=== PATIENT | female | born 1945 | race Caucasian/White ===

== ENCOUNTER 2016-11-25 11:22 | Inpatient (IN) | payer MEDICARE ==
[2016-11-25] VITALS (9 sets, daily range): BP systolic 91–145; BP diastolic 58–86; PULSE 65–104; RESP 18; TEMP 97.9; O2SAT 95–98
[~2016-11-25] VITALS: Ht 162.6 cm; Wt 107.3 kg
[~2016-11-25 11:22] MED LIST: B-1210005 PO; CHOL1CAP2; COUM2.5T PO; COUM2TAB PO; D31000CA PO; ENAL20TA PO; ENOX60P SQ; GLIM4TAB PO; LEVO125T3 PO; METF1000 PO; SIMV40TA PO; TRAD5TAB PO
[2016-11-25] MEDS ORDERED: TRIL135C PO (11:55)
[2016-11-25] MEDS ORDERED: METF1000 PO (11:55)
[2016-11-25] MEDS ORDERED: ZOCO40TA PO (11:55)
[2016-11-25] MEDS ORDERED: LEVO-168 PO (11:55)
[2016-11-25] MEDS ORDERED: CHOL1TAB5 PO (11:55)
[2016-11-25] MEDS ORDERED: ENAL20TA PO (11:55)
[2016-11-25] MEDS ORDERED: SODIUM CHLORIDE 0.9% FLUSH 5 ML FLUSH IVF PRN ×2 (12:00→14:15)
--- NOTE | 2016-11-25 12:00 | PD ---
HPI Chief Complaint: Respiratory Symptoms Time Seen by Provider: 11:51 Travel History International Travel<30 days: No Contact w/Intl Traveler<30days: No Traveled to known affect area: No History of Present Illness HPI 71-year-old female with history of COPD, previous PE no longer anticoagulated here with complaint of shortness of breath. Approximately 5 days ago patient developed a small sore throat. This is bilateral, and improved with Sucrets. For the last 2 days she has been mostly symptom-free with regards to her sore throat. Yesterday afternoon while at a [employer] game patient developed shortness of breath. This is mostly exertional, though some at rest. No chest pain. She has a dry nonproductive cough. States that her COPD really does not give her much issues. Patient is concerned because she just stopped her anticoagulation, Coumadin, 2 months ago based on her PCPs recommendation after having a PE approximately 3 years ago. Patient states that the dyspnea on exertion is identical to when she had a PE previously and is concerned for same. She denies any history of cardiac disease. PFSH Past Medical History Cancer: No Cardiovascular Problems: No High Cholesterol: Yes Diabetes: Yes (type 2 ) Patient Takes Glucophage: Yes Diminished Hearing: No Endocrine: Yes Genitourinary: No Hepatitis: No Hiatal Hernia: No Hypertension: Yes Immune Disorder: No Musculoskeletal: No Neurologic: No Psychiatric: No Reproductive: No Respiratory: Yes (copd; hx pe) Thyroid Disease: Yes Influenza Vaccination: Yes ?: Not : 4 Para: 4 Past Surgical History Surgical History: No Previous Surgery AICD: No Joint Replacement: No Pacemaker: No Social History Alcohol Use: No Tobacco Use: No Substance Use: No Allergies-Medications (Allergen,Severity, Reaction): Coded Allergies: Penicillin (Unverified Allergy, Severe, HIVES, 11/25/16) Sulfa (Unverified Allergy, Severe, ANXIETY, 11/25/16) Reported Meds & Prescriptions Reported Meds & Active Scripts Active Reported Tanzeum 4-Pack Inj (Albiglutide) 50 Mg Pfpen 50 Mg SQ Q7D Lisinopril 20 Mg Tab 20 Mg PO BID Tradjenta (Linagliptin) 5 Mg Tab 5 Mg PO DAILY Glimepiride 4 Mg Tab 4 Mg PO BIDAC D 5000 (Cholecalciferol) 5,000 Unit Tab 1 Tab PO DAILY Trilipix (Choline Fenofibrate DR) 135 Mg Capdr 135 Mg PO DAILY Zocor (Simvastatin) 40 Mg Tab 40 Mg PO HS Levothyroxine (Levothyroxine Sodium) 112 Mcg Tab 112 Mcg PO DAILY Metformin (Metformin HCl) 1,000 Mg Tab 1,000 Mg PO BIDPC With meals Review of Systems Except as stated in HPI: all other systems reviewed are Neg Physical Exam Narrative GENERAL:Obese elderly female in no acute distress SKIN: Warm and dry. HEAD: Normocephalic. EYES: No scleral icterus. No injection or drainage. ENT: Mucous membranes pink and moist. NECK: Supple CARDIOVASCULAR: Regular rate and rhythm. No murmur appreciated. RESPIRATORY: No accessory muscle use. Clear to auscultation. Breath sounds equal bilaterally. GASTROINTESTINAL: Abdomen soft, non-tender, nondistended. Obese MUSCULOSKELETAL: Trace BLE edema. NEUROLOGICAL: Awake and alert. Motor grossly within normal limits. Normal speech. PSYCHIATRIC: Appropriate mood and affect; insight and judgment normal. Data Data Last Documented VS Vital Signs Date Time Temp Pulse Resp B/P Pulse Ox O2 Delivery O2 Flow Rate FiO2 11/25/16 13:07 80 18 139/66 95 Room Air 11/25/16 11:42 97.9 Orders Complete Blood Count With Diff (11/25/16 11:55) Basic Metabolic Panel (Bmp) (11/25/16 11:55) Act Partial Throm Time (Ptt) (11/25/16 11:55) Prothrombin Time / Inr (Pt) (11/25/16 11:55) Troponin I (11/25/16 11:55) Iv Access Insert/Monitor (11/25/16 11:55) Electrocardiogram (11/25/16 11:55) Ecg Monitoring (11/25/16 11:55) Oximetry (11/25/16 11:55) Ct Pulmonary Angiogram (11/25/16 11:55) Sodium Chloride 0.9% Flush (Ns Flush) (11/25/16 12:00) Iodixanol 320 Inj (Rad Ct) (Visipaque 32 (11/25/16 13:07) [facility] Nursing Information (11/25/16 13:30) Heparin Infusion JONATHON.Q1H (11/25/16 13:22) Heparin Inj (Heparin Inj) (11/25/16 13:30) Heparin Inj (Heparin Inj) (11/25/16 19:30) Heparin Inj (Heparin Inj) (11/25/16 19:30) Heparin-D5w Inj (Heparin-D5w Inj) (11/25/16 13:30) Cbc No Diff, Includes Plts (11/28/16 06:00) Act Partial Throm Time (Ptt) (11/25/16 20:22) Occult Blood (Hemoccult) Stool (11/25/16 13:22) Activity Bed Rest (11/25/16 13:24) ^ Anticoagulant Alert (11/25/16 13:24) ^ Post Infusion Restrictions (11/25/16 13:24) Vital Signs (Adult) .As directed (11/25/16 13:24) ^ Notify Dr: Blood Pressure (11/25/16 13:24) ^ Medication Alert (11/25/16 13:24) Misc Nursing Information (11/25/16 13:30) Alteplase Inj (Activase Inj) (11/25/16 13:30) Echo 2d Comp W/Dopp(Routine) (11/25/16 ) Admit Order (Ed Use Only) (11/25/16 13:39) Labs Laboratory Tests Test 11/25/16 12:00 White Blood Count 8.1 TH/MM3 Red Blood Count 4.29 MIL/MM3 Hemoglobin 12.7 GM/DL Hematocrit 37.8 % Mean Corpuscular Volume 88.2 FL Mean Corpuscular Hemoglobin 29.7 PG Mean Corpuscular Hemoglobin 33.6 % Concent Red Cell Distribution Width 12.5 % Platelet Count 173 TH/MM3 Mean Platelet Volume 8.2 FL Neutrophils (%) (Auto) 81.1 % Lymphocytes (%) (Auto) 13.3 % Monocytes (%) (Auto) 4.8 % Eosinophils (%) (Auto) 0.5 % Basophils (%) (Auto) 0.3 % Neutrophils # (Auto) 6.6 TH/MM3 Lymphocytes # (Auto) 1.1 TH/MM3 Monocytes # (Auto) 0.4 TH/MM3 Eosinophils # (Auto) 0.0 TH/MM3 Basophils # (Auto) 0.0 TH/MM3 CBC Comment DIFF FINAL Differential Comment Prothrombin Time 12.3 SEC Prothromb Time International 1.1 RATIO Ratio Activated Partial 24.8 SEC Thromboplast Time Sodium Level 142 MEQ/L Potassium Level 4.1 MEQ/L Chloride Level 107 MEQ/L Carbon Dioxide Level 22.8 MEQ/L Anion Gap 12 MEQ/L Blood Urea Nitrogen 28 MG/DL Creatinine 1.50 MG/DL Estimat Glomerular Filtration 34 ML/MIN Rate Random Glucose 301 MG/DL Calcium Level 8.2 MG/DL Troponin I 0.59 NG/ML MDM Medical Decision Making Medical Screen Exam Complete: Yes Emergency Medical Condition: Yes Medical Record Reviewed: Yes Differential Diagnosis 71-year-old female with history of COPD, previous PE no longer anticoagulated here with sore throat now resolved and dyspnea on exertion for the last day, nonproductive cough. Differential includes COPD exacerbation, bronchitis, pneumonia, PE, symptomatic anemia, arrhythmia, ACS, viral syndrome. Narrative Course Patient placed on monitor, IV established and blood obtained. Twelve-lead EKG showed sinus rhythm with left axis deviation. Patient has Q waves in inferior leads 3, aVF and T waves throughout all precordial leads V1 through V6. Thankfully, this is similar to patient's previous EKG appearance. CBC, BMP, troponin, coags obtained and notable for troponin 0.59. BUN 28, creatinine 1.50. CT pulmonary angiogram showed extensive lateral pulmonary emboli with prominent saddle embolus. No acute pulmonary infiltrates. Given the extensiveness of her clot burden, associated cardiac strain I discussed thrombolysis with patient, cardiology Dr. Linares, key account manager Dr. Gordon. And all parties agree patient would benefit from thrombolysis given her clot burden, likelihood of pulmonary hypertension. Risks and benefits were discussed with patient and her significant other. Patient was given Activase followed by heparin. Stat echo was ordered to evaluate for cardiac dysfunction, RV strain. At approximately 1455 while awaiting EMS transport to our [facility], ICU patient stated she felt poorly, lightheaded and nauseous. Evaluated by myself and nursing with a drop in blood pressure to the 60s systolic. Blood sugar was checked and normal. Given 1 L normal saline bolus, 4 mg Zofran with improvement of symptoms. This happened during patient's TPA infusion. No evidence of bleeding, abdominal pain, etc. EMS arrived at approximately [address]5 [address] patient [address] [facility]. Critical Care Narrative Aggregate critical care time was 85 minutes. Time to perform other separately billable procedures was not included in the critical care time. My time did not include minutes spent treating any other patients simultaneously or on activities that did not directly contribute to the patient's treatment. The services I provided to this patient were to treat and/or prevent clinically significant deterioration that could result in: Cardiopulmonary decompensation, hemorrhage, , disability I provided critical care services requiring my management, as noted below: Chart data review, documentation time, medication orders and management, vital sign assessments/reviewing monitor data, ordering and reviewing lab tests, ordering and interpreting/reviewing x-rays and diagnostic studies, care of the patient and discussion of the patient with the admitting physicians. Diagnosis Primary Impression: Pulmonary embolism Qualified Code: I26.02 - Acute saddle pulmonary embolism with acute cor pulmonale Additional Impressions: Hypercoagulable state Demand ischemia Elevated troponin Dyspnea on exertion Renal insufficiency Admitting Information Admitting Physician Requests: Admit Jannet Philip MD Nov 25, 2016 12:00
[2016-11-25 12:10] LABS: AUTOMATED NEUTROPHIL # 6.6 TH/MM3 (1.8-7.7); BASOPHIL % 0.3 % (0.0-2.0); EOSINOPHIL % 0.5 % (0.0-4.0); HEMATOCRIT 37.8 % (35.0-46.0); HEMO FLAGS DIFF FINAL; LYMPH % 13.3 % (9.0-44.0); LYMPHOCYTE # 1.1 TH/MM3 (1.0-4.8); MEAN CELL VOLUME 88.2 FL (80.0-100.0); MEAN CORPUSCULAR HEMOGLOBIN 29.7 PG (27.0-34.0); MEAN CORPUSCULAR HGB CONC 33.6 % (32.0-36.0); MONO % 4.8 % (0.0-8.0); NEUT % 81.1 % (16.0-70.0); PLATELET COUNT 173 TH/MM3 (150-450); RED BLOOD COUNT 4.29 MIL/MM3 (4.00-5.30); RED CELL DISTRIBUTION WIDTH 12.5 % (11.6-17.2); WHITE BLOOD COUNT 8.1 TH/MM3 (4.0-11.0)
[2016-11-25] MEDS ORDERED: TRAD5TAB PO (12:16)
[2016-11-25] MEDS ORDERED: GLIM4TAB PO (12:16)
[2016-11-25] MEDS ORDERED: LISI-515 PO (12:18)
[2016-11-25 12:23] LABS: POTASSIUM 4.1 MEQ/L (3.5-5.1)
[2016-11-25 12:26] LABS: BICARBONATE 22.8 MEQ/L (21.0-32.0)
[2016-11-25 12:28] LABS: APTT (PATIENT) 24.8 SEC (24.3-30.1); INTERNATIONAL NORMALIZED RATIO 1.1 RATIO; PROTHROMBIN TIME - PATIENT 12.3 SEC (9.8-11.6)
[2016-11-25] MEDS ORDERED: IODIXANOL 320 MG/ML 10 ML VIAL (for Rad CT) IV ONE (13:07)
--- NOTE | 2016-11-25 13:20 | RADHPO ---
EXAM DATE/TIME: 11/25/2016 12:51 [place] COMPARISON: CT PULMONARY ANGIOGRAM, May 11, 2014, 14:49. INDICATIONS : Shortness of breath for two days. IV CONTRAST: 50 cc Visipaque (iodixanol) IV RADIATION DOSE: 20.50 CTDIvol (mGy) MEDICAL HISTORY : Chronic obstructive pulmonary disease. Hypertension. Diabetes mellitus type 2.pulmonary embolism SURGICAL HISTORY : None. ENCOUNTER: Initial ACUITY: 2 days PAIN SCALE: 0/10 LOCATION: Bilateral chest TECHNIQUE: Volumetric scanning of the chest was performed using a pulmonary embolism protocol MIP images were re constructed. Using automated exposure control and adjustment of the mA and/or kV according to patien t size, radiation dose was kept as low as reasonably achievable to obtain optimal diagnostic quality images. FINDINGS: PULMONARY ARTERIES: Multiple prominent filling defects are noted throughout the pulmonary arteries bilaterally. There als o appears to be a prominent saddle embolus in the main pulmonary artery at the junction between the r ight and left pulmonary arteries. LUNGS: There is no consolidation or pneumothorax . No concerning pulmonary nodule is visualized. PLEURAE: There is no pleural thickening or pleural effusion. MEDIASTINUM: There is good visualization of the great vessels of the middle mediastinum. No evidence of mediastin al or hilar adenopathy/mass. MUSCULOSKELETAL: Within normal limits for patient age. MISCELLANEOUS: The visualized upper abdominal organs demonstrate no acute abnormality. Stable left renal cyst. CONCLUSION: 1. Extensive bilateral pulmonary emboli with a prominent saddle embolus. 2. No acute pulmonary infiltrates. Navid Mann MD on November 25, 2016 at 13:15 Board Certified Radiologist. This report was verified electronically.
[2016-11-25] MEDS: METFORMIN HOLD POST IV CONTRAST XX SCH (13:21)
[2016-11-25] MEDS ORDERED: MISCELLANEOUS NURSING INFORMATION OTHER PRN (13:30)
[2016-11-25] MEDS ORDERED: HEPARIN SODIUM - IV 10,000 UNITS/10 ML VIAL IV ONE (13:30)
[2016-11-25] MEDS ORDERED: HEPARIN-D5W INJ 250 ML IV SCH (13:30)
[2016-11-25] MEDS ORDERED: ALTEPLASE INJ 100 MG in WATER STERILE FOR INJ 100 ML IV ONE (13:30)
[2016-11-25] MEDS ORDERED: ALBI1INJ2 SQ (13:51)
[2016-11-25] MEDS ORDERED: CHLORHEXIDINE GLUCONATE 2 % 1 PACK (2 CLOTHS) TOP PRN (14:15)
[2016-11-25] MEDS ORDERED: RESP: ALBUTEROL 2.5 MG/3 ML NEB (PRN) INH (14:15)
[2016-11-25] MEDS ORDERED: MISCELLANEOUS NURSING INFORMATION XX SCH (14:15)
[2016-11-25 14:16] LABS: HEMATOCRIT 38.1 % (35.0-46.0); MEAN CELL VOLUME 88.1 FL (80.0-100.0); MEAN CORPUSCULAR HEMOGLOBIN 29.4 PG (27.0-34.0); MEAN CORPUSCULAR HGB CONC 33.4 % (32.0-36.0); PLATELET COUNT 165 TH/MM3 (150-450); RED BLOOD COUNT 4.33 MIL/MM3 (4.00-5.30); RED CELL DISTRIBUTION WIDTH 12.8 % (11.6-17.2); REVIEW FLAG FINAL; WHITE BLOOD COUNT 8.4 TH/MM3 (4.0-11.0)
[2016-11-25 14:34] LABS: APTT (PATIENT) 22.5 SEC (24.3-30.1); INTERNATIONAL NORMALIZED RATIO 1.1 RATIO; PROTHROMBIN TIME - PATIENT 12.1 SEC (9.8-11.6)
[2016-11-25] MEDS ORDERED: ONDANSETRON HCL 4 MG/2 ML VIAL ONE (14:58)
[2016-11-25] MEDS ORDERED: SODIUM CHLORID 0.9% 500 ML INJ 500 ML IV ONE ×2 (15:00→15:15)
[2016-11-25] MEDS: RESP: ALBUTEROL 2.5 MG/IPRATROPIUM 0.5 MG NEB (SCH) NEB (15:02)
[2016-11-25] MEDS: SODIUM CHLOR 0.9% 1000 ML INJ 1,000 ML IV SCH (15:12)
[2016-11-25] MEDS ORDERED: ONDANSETRON HCL 4 MG/2 ML VIAL IV PUSH ONE (15:15)
[2016-11-25] MEDS ORDERED: GLUCAGON 1 MG/ML VIAL OTHER PRN (16:45)
[2016-11-25] MEDS ORDERED: DEXTROSE 50% IN WATER 50 ML VIAL(D50) IV PUSH PRN (16:45)
--- NOTE | 2016-11-25 16:45 | HHI.HP ---
[facility] Service Critical Care Medicine Primary Care Physician Aixa Whitaker MD Admission Diagnosis saddle PE Diagnosis: (1) Saddle pulmonary embolus Diagnosis: Principal (2) RV dilation and hypokinesis Diagnosis: Principal (3) Hypotension Diagnosis: Principal (4) Elevated troponin Diagnosis: Principal (5) Hypoxia Diagnosis: Principal (6) Hyperglycemia Diagnosis: Principal (7) Hypercoagulable state Diagnosis: Secondary (8) Type 2 diabetes mellitus Diagnosis: Secondary (9) Hypertension Diagnosis: Secondary (10) Hyperlipidemia Diagnosis: Secondary (11) Hypothyroidism Diagnosis: Secondary (12) History of pulmonary embolism Diagnosis: Secondary (13) Chronic kidney disease Diagnosis: Secondary Chief Complaint: Saddle PE Hypotension Elevated troponin Travel History International Travel<30 Days: No Contact w/Intl Traveler <30 Da: No Traveled to Known Affected Are: No History of Present Illness Patient is a 71-year-old female with past medical history significant for pulmonary embolism approximately 3 years ago, taken off Coumadin approximately 2 months ago, history of COPD, obesity, type 2 diabetes, hypertension, dyslipidemia who presented to the emergency department complaining of shortness of breath and dyspnea on exertion. She developed a small sore throat about 5 days ago.Her dyspnea on exertion was identical to when she had a PE previously. Twelve-lead EKG showed sinus rhythm with left axis deviation, anterolateral and inferior T wave changes. CBC, BMP, troponin, coags obtained and troponin was 0.59. BUN 28, creatinine 1.50. CT pulmonary angiogram showed extensive bilateral pulmonary emboli with prominent saddle embolus. Given the extensiveness of her clot burden, associated cardiac strain decision was made to administer thrombolytics. Patient was given Activase [address] Philip followed by IV heparin. Stat echo was ordered to evaluate for cardiac dysfunction, RV strain. While getting TPA infusion patient had a drop in blood pressure to systolic of 60s, received 1 L normal saline bolus with improvement of symptoms. I evaluated the patient in the [facility], after arrival to the ICU. Patient is hypoxemic on 5 L oxygen, hemodynamically stable at this time. I personally reviewed the echo images and also discussed with Dr. Parada. RV is dilated and hypokinetic, the risks of possible clot in the RV. Patient will be continued on IV heparin Review of Systems ROS Limitations: Other (as per HPI) Past Family Social History Allergies: Coded Allergies: Penicillin (Unverified Allergy, Severe, HIVES, 11/25/16) Sulfa (Unverified Allergy, Severe, ANXIETY, 11/25/16) Past Medical History History of PE about 3 years ago taken off anticoagulation with Coumadin approximately 2 months ago Type 2 diabetes Hypertension Dyslipidemia Hypothyroidism Obesity COPD Chronic kidney disease Past Surgical History No major surgery Reported Medications Tanzeum 4-Pack Inj (Albiglutide) 50 Mg Pfpen 50 Mg SQ Q7D Lisinopril 20 Mg Tab 20 Mg PO BID Tradjenta (Linagliptin) 5 Mg Tab 5 Mg PO DAILY Glimepiride 4 Mg Tab 4 Mg PO BIDAC D 5000 (Cholecalciferol) 5,000 Unit Tab 1 Tab PO DAILY Trilipix (Choline Fenofibrate DR) 135 Mg Capdr 135 Mg PO DAILY Zocor (Simvastatin) 40 Mg Tab 40 Mg PO HS Levothyroxine (Levothyroxine Sodium) 112 Mcg Tab 112 Mcg PO DAILY Metformin (Metformin HCl) 1,000 Mg Tab 1,000 Mg PO BIDPC Active Ordered Medications Resuming TPA, receiving heparin Family History Reviewed, mother had uterine ca, no PE/DVT in family Social History No alcohol or tobacco use. Up to date on cancer screening Physical Exam Vital Signs Vital Signs Date Time Temp Pulse Resp B/P Pulse Ox O2 Delivery O2 Flow Rate FiO2 11/25/16 15:49 78 18 145/86 98 11/25/16 15:30 80 18 91/64 98 Room Air 11/25/16 14:58 97 21 11/25/16 14:00 77 18 125/66 96 Room Air 11/25/16 13:07 80 18 139/66 95 Room Air 11/25/16 12:05 85 18 134/68 96 Room Air 11/25/16 11:53 18 96 Room Air 11/25/16 11:42 97.9 104 18 111/58 95 Physical Exam GENERAL: 71-year-old obese female, slightly anxious SKIN: Warm and dry. HEAD: Normocephalic. EYES: No scleral icterus. No injection or drainage. ENT: Mucous membranes pink and moist. NECK: Supple, no JVD CARDIOVASCULAR: Regular rate and rhythm. No murmur appreciated. RESPIRATORY: No accessory muscle use. Clear to auscultation. Breath sounds equal bilaterally. on 5L O2 by [place] GASTROINTESTINAL: Abdomen soft, non-tender, nondistended. Obese MUSCULOSKELETAL: Trace pedal edema. NEUROLOGICAL: Awake and alert. Motor grossly within normal limits. Normal speech. Laboratory Laboratory Tests Test 11/25/16 11/25/16 12:00 13:45 White Blood Count 8.1 8.4 Red Blood Count 4.29 4.33 Hemoglobin 12.7 12.7 Hematocrit 37.8 38.1 Mean Corpuscular Volume 88.2 88.1 Mean Corpuscular Hemoglobin 29.7 29.4 Mean Corpuscular Hemoglobin 33.6 33.4 Concent Red Cell Distribution Width 12.5 12.8 Platelet Count 173 165 Mean Platelet Volume 8.2 8.8 Neutrophils (%) (Auto) 81.1 Lymphocytes (%) (Auto) 13.3 Monocytes (%) (Auto) 4.8 Eosinophils (%) (Auto) 0.5 Basophils (%) (Auto) 0.3 Neutrophils # (Auto) 6.6 Lymphocytes # (Auto) 1.1 Monocytes # (Auto) 0.4 Eosinophils # (Auto) 0.0 Basophils # (Auto) 0.0 CBC Comment DIFF FINAL Differential Comment Prothrombin Time 12.3 12.1 Prothromb Time International 1.1 1.1 Ratio Activated Partial 24.8 22.5 Thromboplast Time Sodium Level 142 Potassium Level 4.1 Chloride Level 107 Carbon Dioxide Level 22.8 Anion Gap 12 Blood Urea Nitrogen 28 Creatinine 1.50 Estimat Glomerular Filtration 34 Rate Random Glucose 301 Calcium Level 8.2 Troponin I 0.59 Result Diagram: 11/25/16 1345 11/25/[address] angiogram shows extensive bilateral PE, with prominent saddle emboli Assessment and Plan Problem List: (1) Saddle pulmonary embolus ICD Code: I26.92 Status: Acute (2) RV dilation and hypokinesis Status: Acute (3) Hypoxia ICD Code: R09.02 Status: Acute (4) Elevated troponin ICD Code: R79.89 Status: Acute (5) Hypotension ICD Code: I95.9 Status: Acute (6) Hypercoagulable state ICD Code: D68.59 Status: Chronic (7) History of pulmonary embolism ICD Code: Z86.711 Status: Chronic (8) Hyperglycemia ICD Code: R73.9 Status: Acute (9) Type 2 diabetes mellitus ICD Code: E11.9 Status: Chronic (10) Hypertension ICD Code: I10 Status: Chronic (11) Hyperlipidemia ICD Code: E78.5 Status: Chronic (12) Hypothyroidism ICD Code: E03.9 Status: Chronic (13) DVT (deep venous thrombosis) ICD Code: I82.409 Status: Chronic (14) Chronic kidney disease ICD Code: N18.9 Status: Acute Assessment and Plan NEURO: -Minimize sedation. As needed morphine for pain and anxiety RESP: Acute saddle pulmonary embolism with RV strain Respiratory insufficiency with hypoxia COPD History of PE and DVT -Status post IV TPA, followed by IV heparin -Stat echo showed dilated hypokinetic RV, RV thrombus cannot be ruled out -Hematology consulted for hypercoagulable state workup -Patient has to be on anticoagulation for life -Troponin elevation from RV strain. CV: RV strain from acute pulmonary embolism Hypotension Elevated troponin -Normal saline IV fluids 1 L bolus and 75 mL per hour -Trend troponin, cardiology consult -Stat echo shows dilated RV with hypokinesis -Received thrombolytics, continue IV heparin -Levophed as needed to keep map above 65-70 to ensure RV coronary perfusion GI: -Clear liquid diet -IV Protonix : Chronic kidney disease -Monitor renal function closely. Place Muniz catheter. ID: -Monitor for infection HEME: Hypercoagulable state Recurrent pulmonary embolism -Monitor CBC, CMP, fibrinogen level and coags as needed -Monitor for bleeding -Hematology consult for further workup ENDO: Hyperglycemia Type 2 diabetes Hypothyroidism -Hold all home antidiabetic medications (Tanzeum, Tradjenta, glimepiride and metformin) -Place on Levemir 15 units every 12 and sliding scale insulin -Continue levothyroxine PROPH: -Continue on IV heparin, IV Protonix LINES: -Utilize peripheral IVs, central line if needed CC time 80 min Code Status Full Discussed Condition With Karma Mancilla Problem Qualifiers (1) Saddle pulmonary embolus: (2) Type 2 diabetes mellitus: (3) Hypertension: Qualified Code: I10 - Essential hypertension (4) Hypothyroidism: Qualified Code: E03.9 - Hypothyroidism, unspecified type (5) Chronic kidney disease: Qualified Code: N18.9 - Chronic kidney disease, unspecified stage Froy Gordon MD Nov 25, 2016 16:45
--- NOTE | 2016-11-25 16:59 | EC ---
Study Study Date:11/25/2016 STUDY CONCLUSIONS SUMMARY - Left ventricle: The cavity size was normal. Wall thickness was increased in a pattern of mild LVH. Systolic function was normal. The estimated ejection fraction was 55%. Wall motion was normal; there were no regional wall motion abnormalities. - Mitral valve: Mild regurgitation. - Right ventricle: Moderate RV enlargement. RV hypokinesis. - Tricuspid valve: Mild regurgitation. - Pulmonary arteries: PA peak pressure: 34mm Hg (S). If LV function is below 40, please consider prescribing an ACEI or ARB or document rationale for non-use. PROCEDURE DATA STUDY STATUS: Elective. Procedure: Transthoracic echocardiography. Image quality was good. Scanning was performed from the parasternal, apical, and subcostal acoustic windows. Study completion: The patient tolerated the procedure well. Transthoracic echocardiography. M-mode, complete 2D, complete spectral Doppler, and color Doppler. Patient status: Inpatient. CARDIAC ANATOMY LEFT VENTRICLE: The cavity size was normal. Wall thickness was increased in a pattern of mild LVH. Systolic function was normal. The estimated ejection fraction was 55%. Wall motion was normal; there were no regional wall motion abnormalities. AORTIC VALVE: Trileaflet; mildly thickened leaflets. Doppler: Transvalvular velocity was within the normal range. There was no stenosis. No regurgitation. AORTA: Aortic root: The aortic root was normal in size. MITRAL VALVE: Structurally normal valve. Doppler: Transvalvular velocity was within the normal range. There was no evidence for stenosis. Mild regurgitation. LEFT ATRIUM: The atrium was normal in size. RIGHT VENTRICLE: Moderate RV enlargement. RV hypokinesis. PULMONIC VALVE: Doppler: Transvalvular velocity was within the normal range. There was no evidence for stenosis. No regurgitation. TRICUSPID VALVE: Structurally normal valve. Doppler: Transvalvular velocity was within the normal range. Mild regurgitation. PULMONARY ARTERY: The main pulmonary artery was normal-sized. Systolic pressure was within the normal range. RIGHT ATRIUM: The atrium was normal in size. PERICARDIUM: There was no pericardial effusion. SYSTEMIC VEINS: Inferior vena cava: The vessel was normal in size. BASIC MEASUREMENTS ADULT Normal Left ventricle LV internal dimension, ED, chordal level, *36 mm 43-52 PLAX LV internal dimension, ES, chordal level, 28.1 mm 23-38 PLAX Fractional shortening, chordal level, PLAX *22 % >29 LV posterior wall thickness, ED 11.7 mm IVS/LVPW ratio, ED 1.12 <1.3 Ventricular septum Septal thickness, ED 13.1 mm Aortic valve Leaflet separation 18 mm 15-26 Right ventricle RV internal dimension, ED, PLAX *40.5 mm 19-38 BASIC MEASUREMENTS ADULT Normal Aortic valve Leaflet separation 18 mm 15-26 Aorta Root diameter, ED 26 mm 20-37 Left atrium Anterior-posterior dimension, ES 38 mm 19-40 LA/aortic root ratio 1.46 DOPPLER MEASUREMENTS ADULT Normal Main pulmonary artery Pressure, S *34 mm Hg =30 Tricuspid valve Regurgitant peak velocity 246 cm/s Peak RV-RA gradient, S 24 mm Hg Maximal regurgitant velocity 246 cm/s Systemic veins Estimated CVP 10 mm Hg Right ventricle RV pressure, S *34 mm Hg <30 LEGEND: Mean values are shown as u=mean value. Asterisk (*) florez values outside specified normal range. Prepared and signed by Jeffrey Parada [id number]
[2016-11-25] MEDS ORDERED: TERBUTALINE INJ 1 MG/ML AMP SQ PRN ×2 (17:30→17:45)
[2016-11-25] MEDS ORDERED: NOREPINEPHRINE-DEXTROSE DRIP 250 ML IV SCH ×2 (17:30→17:45)
[2016-11-25] MEDS: INSULIN DETEMIR 100 UNITS/ML VIAL SQ SCH (18:00)
--- NOTE | 2016-11-25 18:01 | EKG ---
Date Performed: 11/25/2016 Time Performed: 11:57:00 PTAGE: 71 years EKG: Sinus rhythm Left axis deviation rSr'(V1) - probable normal variant Inferior infarct - age undetermined Possible anterior infarct - age undetermined Anterolateral and inferior T wave changes may be due to myocardia l ischemia Low QRS voltages in precordial leads Abnormal ECG PREVIOUS TRACING : 05/12/2014 07.08 Compared to previous tracing, inferior T wave inversion has worsened. DOCTOR: [place] Interpretating Date/Time 11/25/2016 18:00:57
[2016-11-25] MEDS ORDERED: HEPARIN SODIUM - IV 10,000 UNITS/10 ML VIAL IV PRN ×2 (19:30)
[2016-11-25] MEDS: CHLORHEXIDINE 0.12% (ORAL KIT) 15 ML CUP MT SCH (20:00)
[2016-11-25] MEDS ORDERED: NON-FORMULARY DRUG (Simvastatin (Zocor) 40 MG) PO SCH (21:00)
[2016-11-25] MEDS: INSULIN ASPART SUPPLEMENTAL SCALE SQ SCH (21:00)
[2016-11-25] MEDS: PRAVASTATIN SOD 80 MG TAB PO SCH (21:17)
[2016-11-25] MEDS: SODIUM CHLORIDE 0.9% FLUSH 5 ML FLUSH IVF SCH (21:17)
[2016-11-25 23:00] LABS: BLOOD, URINE TRACE (NEG); GLUCOSE,URINE 1000 mg/dL (NEG); GRANULAR CAST, URINE 33 /lpf; KETONE, URINE NEG (NEG); MUCUS URINE FEW /lpf (OCC); NITRITE,URINE NEG (NEG); SQUAMOUS EPITHELIAL CELL URINE 1 /hpf (0-5); URINE COLOR LIGHT-YELLOW (YELLW/STRAW)
[2016-11-25 23:01] LABS: COMMENT (UR) CATH-CULTURE IND; CULTURE IF INDICATED CATH CULTURE IND
[2016-11-26] VITALS (14 sets, daily range): BP systolic 97–135; BP diastolic 52–70; PULSE 57–73; RESP 15–27; TEMP 97.3–98.5; O2SAT 94–100
[2016-11-26 00:07] LABS: APTT (PATIENT) 87.2 SEC (24.3-30.1)
[2016-11-26] MEDS: SODIUM CHLOR 0.9% 1000 ML INJ 1,000 ML IV SCH ×2 (03:42→16:42)
[2016-11-26] MEDS: HEPARIN-D5W INJ 250 ML IV SCH ×2 (03:43→20:04)
[2016-11-26] MEDS: CHLORHEXIDINE GLUCONATE 2 % 1 PACK (2 CLOTHS) TOP SCH (04:00)
[2016-11-26] MEDS: RESP: ALBUTEROL 2.5 MG/IPRATROPIUM 0.5 MG NEB (SCH) NEB ×4 (04:00→19:47)
[2016-11-26] MEDS: INSULIN DETEMIR 100 UNITS/ML VIAL SQ SCH ×2 (05:25→17:51)
[2016-11-26] MEDS: LEVOTHYROXINE SODIUM 112 MCG TAB PO SCH (05:25)
[2016-11-26] MEDS: INSULIN ASPART SUPPLEMENTAL SCALE SQ SCH ×4 (06:01→20:05)
[2016-11-26 06:48] LABS: APTT (PATIENT) 70.2 SEC (24.3-30.1); AUTOMATED NEUTROPHIL # 4.8 TH/MM3 (1.8-7.7); BASOPHIL % 0.5 % (0.0-2.0); EOSINOPHIL # 0.1 TH/MM3 (0-0.4); EOSINOPHIL % 1.3 % (0.0-4.0); HEMATOCRIT 33.9 % (35.0-46.0); HEMO FLAGS DIFF FINAL; LYMPH % 20.3 % (9.0-44.0); LYMPHOCYTE # 1.4 TH/MM3 (1.0-4.8); MEAN CELL VOLUME 89.1 FL (80.0-100.0); MEAN CORPUSCULAR HEMOGLOBIN 30.6 PG (27.0-34.0); MEAN CORPUSCULAR HGB CONC 34.4 % (32.0-36.0); MONO % 6.8 % (0.0-8.0); NEUT % 71.1 % (16.0-70.0); PLATELET COUNT 137 TH/MM3 (150-450); RED CELL DISTRIBUTION WIDTH 13.7 % (11.6-17.2); WHITE BLOOD COUNT 6.8 TH/MM3 (4.0-11.0)
[2016-11-26 07:14] LABS: ALKALINE PHOSPHATASE 34 U/L (45-117); ALT (GPT) 17 U/L (10-53); ANION GAP 8 MEQ/L (5-15); AST (GOT) 19 U/L (15-37); BLOOD UREA NITROGEN 23 MG/DL (7-18); CHLORIDE 110 MEQ/L (98-107); GLOMERULAR FILTRATION RATE 46 ML/MIN (>89); POTASSIUM 3.9 MEQ/L (3.5-5.1); SODIUM (NA) 144 MEQ/L (136-145); TOTAL BILIRUBIN ADULT 0.3 MG/DL (0.2-1.0)
--- NOTE | 2016-11-26 07:47 | HHI.CCPN ---
Subjective Remarks/Hospital Course Patient is a 71-year-old female with past medical history significant for pulmonary embolism approximately 3 years ago, taken off Coumadin approximately 2 months ago, history of COPD, obesity, type 2 diabetes, hypertension, dyslipidemia who presented to the emergency department complaining of shortness of breath and dyspnea on exertion. She developed a small sore throat about 5 days ago.Her dyspnea on exertion was identical to when she had a PE previously. Twelve-lead EKG showed sinus rhythm with left axis deviation, anterolateral and inferior T wave changes. CBC, BMP, troponin, coags obtained and troponin was 0.59. BUN 28, creatinine 1.50. CT pulmonary angiogram showed extensive bilateral pulmonary emboli with prominent saddle embolus. Given the extensiveness of her clot burden, associated cardiac strain decision was made to administer thrombolytics. Patient was given Activase [address] Philip followed by IV heparin. Stat echo was ordered to evaluate for cardiac dysfunction, RV strain. While getting TPA infusion patient had a drop in blood pressure to systolic of 60s, received 1 L normal saline bolus with improvement of symptoms. I evaluated the patient in the [facility], after arrival to the ICU. Patient is hypoxemic on 5 L oxygen, hemodynamically stable at this time. I personally reviewed the echo images and also discussed with Dr. Parada. RV is dilated and hypokinetic, the risks of possible clot in the RV. Patient will be continued on IV heparin 11/26/16- No evidence of bleeding. Hemodynamically stable. Troponin 0.65. Receiving IV Heparin. Objective Vital Signs Date Time Temp Pulse Resp B/P Pulse Ox O2 Delivery O2 Flow Rate FiO2 11/26/16 06:00 60 11/26/16 04:00 98.4 16 109/62 94 11/25/16 15:30 Room Air 11/25/16 14:58 21 Intake and Output 11/25/16 11/25/16 11/26/16 08:00 16:00 00:00 Intake Total 450 ml Output Total 650 ml Balance -200 ml Result Diagram: 11/26/16 0557 11/26/[address] angiogram shows extensive bilateral PE, with prominent saddle emboli Objective Remarks GENERAL: 71-year-old obese female, no distress SKIN: Warm and dry. HEAD: Normocephalic. EYES: No scleral icterus. No injection or drainage. ENT: Mucous membranes pink and moist. NECK: Supple CARDIOVASCULAR: Regular rate and rhythm. No murmur appreciated. RESPIRATORY: Clear to auscultation. Breath sounds equal bilaterally. on 5L O2 by [place] GASTROINTESTINAL: Abdomen soft, non-tender, nondistended. Obese MUSCULOSKELETAL: Trace pedal edema. NEUROLOGICAL: Awake and alert. Motor grossly within normal limits. Normal speech. A/P Problem List: (1) Saddle pulmonary embolus ICD Code: I26.92 Status: Acute (2) RV dilation and hypokinesis Status: Acute (3) Hypoxia ICD Code: R09.02 Status: Acute (4) Elevated troponin ICD Code: R79.89 Status: Acute (5) Hypotension ICD Code: I95.9 Status: Acute (6) Hypercoagulable state ICD Code: D68.59 Status: Chronic (7) History of pulmonary embolism ICD Code: Z86.711 Status: Chronic (8) Hyperglycemia ICD Code: R73.9 Status: Acute (9) Type 2 diabetes mellitus ICD Code: E11.9 Status: Chronic (10) Hypertension ICD Code: I10 Status: Chronic (11) Hyperlipidemia ICD Code: E78.5 Status: Chronic (12) Hypothyroidism ICD Code: E03.9 Status: Chronic (13) DVT (deep venous thrombosis) ICD Code: I82.409 Status: Chronic (14) Chronic kidney disease ICD Code: N18.9 Status: Acute Assessment and Plan NEURO: -Minimize sedation. As needed morphine for pain and anxiety RESP: Acute saddle pulmonary embolism with RV strain Respiratory insufficiency with hypoxia COPD History of PE and DVT -Status post IV TPA, followed by IV heparin -Stat echo showed dilated hypokinetic RV, RV thrombus cannot be ruled out -Hematology consulted for hypercoagulable state workup, D/W Dr. Paredes -Patient has to be on anticoagulation for life, continue IV heparin for now -Troponin elevation from RV strain. CV: RV strain from acute pulmonary embolism Hypotension Elevated troponin -Normal saline IV fluids 1 L bolus and 75 mL per hour -Trend troponin, cardiology consult -Stat echo shows dilated RV with hypokinesis -Received thrombolytics, continue IV heparin -Levophed if needed to keep map above 65-70 to ensure RV coronary perfusion GI: -Clear liquid diet-advance to 1999 ADA diet -IV Protonix : Chronic kidney disease -Monitor renal function closely. Place Muniz catheter. ID: -Monitor for infection HEME: Hypercoagulable state Recurrent pulmonary embolism -Monitor CBC, CMP, fibrinogen level and coags as needed -Monitor for bleeding -Hematology consult for further workup ENDO: Hyperglycemia Type 2 diabetes Hypothyroidism -Hold all home antidiabetic medications (Tanzeum, Tradjenta, glimepiride and metformin) -Continue Levemir 15 units every 12 and sliding scale insulin -Continue levothyroxine PROPH: -Continue on IV heparin, IV Protonix LINES: -Utilize peripheral IVs, central line if needed Level 3 [facility] hospitalist to assume care on 11/27/16. Ok to transfer out of ICU in 24 hours Problem Qualifiers (1) Saddle pulmonary embolus: (2) Type 2 diabetes mellitus: (3) Hypertension: Qualified Code: I10 - Essential hypertension (4) Hypothyroidism: Qualified Code: E03.9 - Hypothyroidism, unspecified type (5) Chronic kidney disease: Qualified Code: N18.9 - Chronic kidney disease, unspecified stage Froy Gordon MD Nov 26, 2016 07:47
[2016-11-26] MEDS: CHLORHEXIDINE 0.12% (ORAL KIT) 15 ML CUP MT SCH ×2 (08:00→20:00)
[2016-11-26] MEDS: SODIUM CHLORIDE 0.9% FLUSH 5 ML FLUSH IVF SCH ×2 (08:09→20:02)
[2016-11-26] MEDS: PANTOPRAZOLE SODIUM 40 MG VIAL IV SCH (08:09)
[2016-11-26] MEDS: CHOLECALCIFEROL (VIT D3) 5000 UNIT CAP PO SCH (08:09)
[2016-11-26] MEDS: FENOFIBRATE 145 MG TAB PO SCH (08:09)
[2016-11-26] MEDS ORDERED: CHOLINE FENOFIBRATE PO SCH (09:00)
[2016-11-26] MEDS ORDERED: CHOLECALCIFEROL PO SCH (09:00)
--- NOTE | 2016-11-26 11:54 | MB ---
cc: MARTY PAREDES CARMEN DATE OF CONSULTATION 11/26/2016 DATE OF 1945 PRIMARY CARE PHYSICIAN Aixa Whitaker MD REASON FOR CONSULTATION Bilateral pulmonary emboli (sub-massive/massive). This is her second lifetime episode of pulmonary emboli with the first one occurring in the summer of 2013. CURRENT TREATMENT The patient is status post thrombolytic therapy with t-PA; now on a heparin infusion. CHIEF COMPLAINT Ms. Clements reports having had sudden onset difficulty breathing on Saturday. She presented to the hospital on Saturday. Presently she reports her breathing is improved. HISTORY OF PRESENT ILLNESS Ms. Clements is a very pleasant 71-year-old female who reports being in her usual good state of health up until Saturday. She had traveled to [place] with her . While in [place] she began to feel shortness of breath. She tried to control her symptoms at home, hoping they would go way; however, her symptoms progressed and on Saturday morning she presents to the emergency department complaining of shortness of breath. She was noted to have mild hypotension with systolic blood pressure dropping down to 90 at the time of presentation. Shortly thereafter she became somewhat hypoxic as well. She underwent imaging studies which included a CT angiogram dated 11/25/2016. This revealed saddle pulmonary emboli with prominent bilateral emboli involving the pulmonary vasculature as well. An echocardiogram was done and this revealed significant right ventricular hypokinesis/strain. She therefore was recommended thrombolytic therapy. This was delivered and she has since then been initiated on anticoagulation with heparin. This is the second lifetime episode of pulmonary emboli for Ms. Clements. The first episode occurred in April of 2014 when she presented with similar symptoms. At that time she had bilateral upper and lower lobe pulmonary emboli. The patient reports at that time also being found to have lower extremity deep venous thrombosis involving the right lower extremity with extension to the popliteal veins. She reports being on anticoagulation with warfarin for close to 1-1/2 years but came off of anticoagulation 1-1/2 years ago upon the recommendation of her primary care physician. She denies having had any recent surgeries, recent prolonged immobility or acute illness. PAST MEDICAL HISTORY 1. History of bilateral pulmonary emboli and right lower extremity deep venous thrombosis in April of 2014. 2. History of hypertension. 3. Type 2 diabetes. 4. Hyperlipidemia. 5. Hypothyroidism. She also has chronic kidney failure. 6. Obesity. 7. COPD. PAST SURGICAL HISTORY Denies any major surgeries other than childbirth. SOCIAL HISTORY She lives at home with her . She denies alcohol or tobacco abuse. The patient is originally from [facility]. FAMILY HISTORY No known family history of pulmonary emboli, thromboses or oncologic diagnosis. Father of complications of diabetes. Her mother of uterine cancer. ALLERGIES PENICILLIN. SULFA. CURRENT INPATIENT MEDICATIONS 1. Pantoprazole 40 mg IV daily. 2. Cholecalciferol 5000 units once daily. 3. Tricor 145 mg daily. 4. Levothyroxine 112 micrograms daily. 5. Insulin NovoLog sliding scale per protocol. 6. Pravastatin 80 mg p.o. q.h.s. 7. Insulin detemir 15 units subcu q.12 hours. 8. Terbutaline 1 mg subcu p.r.n. for extravasation. 9. Albuterol nebs q.6 hours as needed for wheezing. 10. Heparin infusion per protocol. REVIEW OF SYSTEMS A 13-point review of systems obtained. The following are the pertinent positives: CONSTITUTIONAL: The patient reports he has no symptoms of fevers, chills, night sweats, weight loss, decreased appetite, fatigue, weakness. HEENT: Denies headaches, blurry vision, difficulty swallowing or soreness of throat. RESPIRATORY: Reports shortness of breath. Denies cough, hemoptysis or pleuritic chest pain. CARDIOVASCULAR: Denies chest pain, pressure, PND, orthopnea. GI: Denies nausea, vomiting, diarrhea, hematochezia, melena, abdominal distension or jaundice. : No complaint. MUSCULOSKELETAL: No complaints. COLOR BUFFER: No complaints, focal sensory or motor deficits. PHYSICAL EXAMINATION VITAL SIGNS: Temperature 98.4 degrees Fahrenheit, heart rate 57 beats/minute, blood pressure 109/62, O2 sats 94% on 2 liters nasal cannula. GENERAL PHYSICAL APPEARANCE: Ms. Clements is an elderly female. She is laying in bed, appears to be in no acute distress. She speaks to me in full sentences. Her and daughter are at bedside. HEENT: Head atraumatic, normocephalic. Conjunctivae are not pale. Sclerae are anicteric. EOMI, PERRLA. Oral exam - no pharyngeal erythema. NECK EXAM: No palpable cervical or supraclavicular adenopathy. RESPIRATORY EXAM: Good air movement bilaterally. No abnormal breath sounds. CARDIOVASCULAR EXAM: Regular rate and rhythm, S1-S2. No obvious murmurs, rubs or gallops. ABDOMINAL EXAM: Protuberant belly. Soft, nontender, nondistended. No palpable organ enlargement. LOWER EXTREMITIES: No pretibial edema. No calf tenderness. COLOR BUFFER: No focal sensory or motor deficits. LOWER EXTREMITIES: No pretibial edema or calf tenderness. LABORATORY FINDINGS Blood work dated 11/26/2016: WBC count 6.8, hemoglobin 11.6 gm/dl, hematocrit 34%, platelet count 137, absolute neutrophil count 4.8. Chemistries: Sodium 144, potassium 3.9, chloride 110, bicarbonate 26, BUN 23, creatinine 1.15, random glucose 89, calcium 8, total bilirubin 0.3, AST 19, ALT 17, alkaline phosphatase 34, albumin 2.9. Coags: PTT 70.2. IMAGING STUDIES CT angiogram dated 11/25/2016: Extensive bilateral pulmonary emboli with a prominent saddle embolus. No acute pulmonary infiltrates. ASSESSMENT Ms. Clements is a 71-year-old female who developed sudden onset difficulty breathing on 11/24/2016. She presented to the hospital 11/25/2016 with persistent symptoms. She underwent CT angiogram of the chest which revealed a prominent saddle embolus. Echocardiogram done 11/25/2016 revealed significant right heart strain. She was treated with systemic thrombolytic therapy with tissue plasminogen activator infusion and is now on a heparin infusion. Her pertinent history includes history of bilateral pulmonary emboli and right lower extremity deep venous thrombosis which was diagnosed in April of 2014. This was thought to be unprovoked and she was treated with approximately 18 months of anticoagulation with warfarin. I do not see where a prothrombotic workup at that time was performed. The patient has no known inherited or acquired prothrombotic conditions. The Oncology/Hematology Service has been consulted for further workup and evaluation as well as long-term management of anticoagulation. RECOMMENDATIONS 1. Saddle pulmonary embolus associated with right heart strain: This is the patient's second lifetime episode of what appears to be unprovoked venous thromboembolism. I suspect there may be an underlying prothrombotic state. I have therefore ordered a panel of blood work to rule out acquired or inherited prothrombotic condition such as Factor V Leiden, prothrombin gene mutation, antithrombin III deficiency as well as antiphospholipid antibodies and circulating lupus anticoagulant. I believe the patient was appropriately treated with thrombolytic therapy given the right heart strain and the submassive/massive nature of the pulmonary embolus. She is now appropriately on heparin and would be a candidate for initiation of therapeutic oral anticoagulation either with warfarin or with an oral Factor Xa inhibitor such as Eliquis or Xarelto. 2. Given this being her second lifetime episode of significant venous thromboembolism, this patient will be a candidate for long-term/indefinite anticoagulation. I will organize outpatient followup with myself in my clinic. Marty Paredes MD ZMarlen/SSB /8:22 AM /11:21 AM
[2016-11-26] MEDS: METFORMIN HOLD POST IV CONTRAST XX SCH (11:56)
[2016-11-26 13:26] LABS: APTT (PATIENT) 60.2 SEC (24.3-30.1)
--- NOTE | 2016-11-26 16:04 | RADRPT ---
EXAM DATE/TIME: 11/26/2016 14:31 [facility] COMPARISON: US LEG BILATERAL VENOUS DOPPLER, May 12, 2014, 8:58. INDICATIONS : Extensive bilateral pulmonary embolism. MEDICAL HISTORY : Hypercholesterolemia. Diabetes mellitus type 2. Chronic obstructive pulmonary disease. Thyroid diseas e. Pulmonary embolism. HTN. Blood dyscrasias. SURGICAL HISTORY : Fractured right ankle repair. ENCOUNTER: Initial ACUITY: 2 day PAIN SCORE: 0/10 LOCATION: Bilateral leg. TECHNIQUE: Venous ultrasound of the left and right leg was performed from the inguinal ligament to the proximal calf. Real-time, color Doppler and spectral tracing, compression and augmentation techniques were us ed. FINDINGS: RIGHT LEG: The deep venous system is noncompressible from the common femoral vein to the popliteal vein. There i s no evidence of flow on Doppler evaluation. Proximal calf veins are patent. LEFT LEG: The popliteal and peroneal veins are noncompressible and lack flow. Normal flow and compressibility i s identified in the femoral veins. CONCLUSION: Positive for DVT in both lower extremities. Yossi Zhang MD on November 26, 2016 at 15:56 Board Certified Radiologist. This report was verified electronically.
[2016-11-26] MEDS: PRAVASTATIN SOD 80 MG TAB PO SCH (20:02)
[2016-11-27] VITALS (13 sets, daily range): BP systolic 85–136; BP diastolic 54–66; PULSE 55–95; RESP 15–22; TEMP 97–98.9; O2SAT 93–99
[2016-11-27] MEDS: CHLORHEXIDINE GLUCONATE 2 % 1 PACK (2 CLOTHS) TOP SCH (04:00)
[2016-11-27] MEDS: RESP: ALBUTEROL 2.5 MG/IPRATROPIUM 0.5 MG NEB (SCH) NEB ×4 (04:08→21:32)
[2016-11-27] MEDS: LEVOTHYROXINE SODIUM 112 MCG TAB PO SCH (05:30)
[2016-11-27] MEDS: INSULIN DETEMIR 100 UNITS/ML VIAL SQ SCH ×2 (05:31→17:22)
[2016-11-27] MEDS: INSULIN ASPART SUPPLEMENTAL SCALE SQ SCH ×4 (05:31→20:34)
[2016-11-27] MEDS: SODIUM CHLOR 0.9% 1000 ML INJ 1,000 ML IV SCH ×2 (05:31→20:35)
[2016-11-27 06:00] LABS: APTT (PATIENT) 52.8 SEC (24.3-30.1)
[2016-11-27] MEDS: CHLORHEXIDINE 0.12% (ORAL KIT) 15 ML CUP MT SCH ×2 (07:08→19:26)
[2016-11-27] MEDS: PANTOPRAZOLE SODIUM 40 MG VIAL IV SCH (07:36)
[2016-11-27] MEDS: SODIUM CHLORIDE 0.9% FLUSH 5 ML FLUSH IVF SCH ×2 (07:36→20:35)
[2016-11-27] MEDS: CHOLECALCIFEROL (VIT D3) 5000 UNIT CAP PO SCH (07:36)
[2016-11-27] MEDS: FENOFIBRATE 145 MG TAB PO SCH (07:36)
[2016-11-27] MEDS: HEPARIN-D5W INJ 250 ML IV SCH (13:00)
--- NOTE | 2016-11-27 16:45 | HHI.PR ---
Subjective Remarks Pt is a 71 y/o M with pror h/o PE. Pt stopped coumadin 2 months ago. Pt presented to the ER with c/o SOB. CTA showed b/l saddle, PE Pt given tPA in the ER & started on heparin gtt - RV is dilated and hypokinetic so risks of possible clot in the RV Objective Vitals Vital Signs Date Time Temp Pulse Resp B/P Pulse Ox O2 Delivery O2 Flow Rate FiO2 11/27/16 14:00 95 11/27/16 12:00 97.0 69 20 121/59 93 11/27/16 12:00 69 11/27/16 10:00 60 11/27/16 10:00 99 Nasal Cannula 3.00 11/27/16 08:00 55 11/27/16 08:00 98.0 56 19 124/65 98 11/27/16 06:00 59 11/27/16 04:00 59 11/27/16 04:00 98.8 59 15 118/66 97 11/27/16 02:00 61 11/27/16 00:00 98.7 59 15 107/54 93 11/27/16 00:00 59 11/26/16 22:00 69 11/26/16 20:00 98.5 69 22 120/58 95 11/26/16 20:00 73 11/26/16 19:48 100 Nasal Cannula 2.00 11/26/16 18:00 66 11/26/16 11/26/16 11/27/16 15:00 23:00 07:00 Intake Total 1819 ml 893 ml 700 ml Output Total 625 ml 1200 ml 900 ml Balance 1194 ml -307 ml -200 ml Intake Oral 750 ml IV Total 1069 ml 893 ml 700 ml Output Urine Total 625 ml 1200 ml 900 ml # Bowel Movements 0 Result Diagram: 11/26/16 0557 11/26/16 0551 Imaging Last Impressions Lower Extremity Ultrasound 11/26/16 0000 Signed Impressions: Service Date/Time: Saturday, November 26, 2016 14:31 - CONCLUSION: Positive for DVT in both lower extremities. Yossi Zhang MD CT Angiography 11/25/16 1155 Signed Impressions: Service Date/Time: Friday, November 25, 2016 12:51 - CONCLUSION: 1. Extensive bilateral pulmonary emboli with a prominent saddle embolus. 2. No acute pulmonary infiltrates. Navid J. Siragusa, MD Objective Remarks GENERAL: This is a well-nourished, well-developed patient, in no apparent distress. CARDIOVASCULAR: Regular rate and rhythm without murmurs, gallops, or rubs. RESPIRATORY: Clear to auscultation. Breath sounds equal bilaterally. No wheezes , rales, or rhonchi. GASTROINTESTINAL: Abdomen soft, non-tender, nondistended. Normal active bowel sounds MUSCULOSKELETAL: Extremities without clubbing, cyanosis, or edema. NEURO: Alert & Oriented x4 to person, place, time, situation. Moves all ext x4 A/P Problem List: (1) Saddle pulmonary embolus Status: Acute Plan: - comgmt with Hematology - Hypercoag w/u ordered - on IV heparin - start eliquis - continue supplemental oxygen - case d/w Dr. Paredes, Hematology, (11/27/16) - will stop heparin - start eliquis 10mg BID (2) RV dilation and hypokinesis Status: Acute (3) Elevated troponin Status: Acute Plan: - d/t b/l PE (4) Type 2 diabetes mellitus Status: Chronic Plan: - stable - levemir - SSI (5) Hyperlipidemia Status: Chronic Plan: - tricor, pravachol (6) Hypothyroidism Status: Chronic Plan: - synthroid Problem Qualifiers (1) Saddle pulmonary embolus: (2) Type 2 diabetes mellitus: (3) Hypothyroidism: Qualified Code: E03.9 - Hypothyroidism, unspecified type Fadi Garcia DO Nov 27, 2016 16:45
[2016-11-27] MEDS: APIXABAN 5 MG TABLET PO SCH ×2 (17:22→20:34)
[2016-11-27] MEDS: PRAVASTATIN SOD 80 MG TAB PO SCH (20:34)
[2016-11-28] VITALS (11 sets, daily range): BP systolic 98–156; BP diastolic 54–98; PULSE 51–75; RESP 14–18; TEMP 96.8–98.6; O2SAT 93–97
[2016-11-28] MEDS: RESP: ALBUTEROL 2.5 MG/IPRATROPIUM 0.5 MG NEB (SCH) NEB ×4 (04:54→20:59)
[2016-11-28] MEDS: LEVOTHYROXINE SODIUM 112 MCG TAB PO SCH (05:30)
[2016-11-28] MEDS: INSULIN DETEMIR 100 UNITS/ML VIAL SQ SCH ×2 (05:30→17:53)
[2016-11-28] MEDS: INSULIN ASPART SUPPLEMENTAL SCALE SQ SCH ×4 (05:30→22:03)
[2016-11-28] MEDS: CHLORHEXIDINE GLUCONATE 2 % 1 PACK (2 CLOTHS) TOP SCH (05:31)
[2016-11-28 05:43] LABS: HEMATOCRIT 32.5 % (35.0-46.0); MEAN CELL VOLUME 89.4 FL (80.0-100.0); MEAN CORPUSCULAR HEMOGLOBIN 29.8 PG (27.0-34.0); MEAN CORPUSCULAR HGB CONC 33.4 % (32.0-36.0); PLATELET COUNT 140 TH/MM3 (150-450); RED BLOOD COUNT 3.64 MIL/MM3 (4.00-5.30); RED CELL DISTRIBUTION WIDTH 13.6 % (11.6-17.2); REVIEW FLAG FINAL; WHITE BLOOD COUNT 5.9 TH/MM3 (4.0-11.0)
[2016-11-28] MEDS: CHLORHEXIDINE 0.12% (ORAL KIT) 15 ML CUP MT SCH ×2 (07:13→21:00)
[2016-11-28] MEDS: SODIUM CHLOR 0.9% 1000 ML INJ 1,000 ML IV SCH (07:24)
[2016-11-28] MEDS: CHOLECALCIFEROL (VIT D3) 5000 UNIT CAP PO SCH (07:25)
[2016-11-28] MEDS: PANTOPRAZOLE SODIUM 40 MG VIAL IV SCH (07:25)
[2016-11-28] MEDS: FENOFIBRATE 145 MG TAB PO SCH (07:25)
[2016-11-28] MEDS: APIXABAN 5 MG TABLET PO SCH ×2 (07:25→22:02)
[2016-11-28] MEDS: SODIUM CHLORIDE 0.9% FLUSH 5 ML FLUSH IVF SCH ×2 (07:25→21:00)
--- NOTE | 2016-11-28 15:11 | HHI.PR ---
Subjective Remarks No new complaints. Objective Vitals Vital Signs Date Time Temp Pulse Resp B/P Pulse Ox O2 Delivery O2 Flow Rate FiO2 11/28/16 12:00 97.7 62 18 123/68 96 11/28/16 09:40 96.8 73 18 156/98 96 11/28/16 08:31 96 11/28/16 08:00 97.4 58 18 120/67 94 11/28/16 08:00 59 11/28/16 06:00 63 11/28/16 04:00 98.5 51 14 102/56 93 11/28/16 04:00 51 11/28/16 02:00 55 11/28/16 00:00 98.6 58 15 98/54 97 11/28/16 00:00 58 11/27/16 22:00 68 11/27/16 20:20 94 21 11/27/16 20:00 69 11/27/16 20:00 98.9 69 21 136/64 95 11/27/16 18:00 69 11/27/16 16:00 98.2 88 22 85/57 99 11/27/16 16:00 65 11/27/16 11/27/16 11/28/16 15:00 23:00 07:00 Intake Total 1613 ml 500 ml 669 ml Output Total 1200 ml 750 ml 1000 ml Balance 413 ml -250 ml -331 ml Intake Oral 750 ml IV Total 863 ml 500 ml 669 ml Output Urine Total 1200 ml 750 ml 1000 ml Result Diagram: 11/28/16 0510 11/26/16 0551 Imaging Last Impressions Lower Extremity Ultrasound 11/26/16 0000 Signed Impressions: Service Date/Time: Saturday, November 26, 2016 14:31 - CONCLUSION: Positive for DVT in both lower extremities. Yossi Zhang MD CT Angiography 11/25/16 1155 Signed Impressions: Service Date/Time: Friday, November 25, 2016 12:51 - CONCLUSION: 1. Extensive bilateral pulmonary emboli with a prominent saddle embolus. 2. No acute pulmonary infiltrates. Navid Mann MD Objective Remarks GENERAL: This is a well-nourished, well-developed patient, in no apparent distress. CARDIOVASCULAR: Regular rate and rhythm without murmurs, gallops, or rubs. RESPIRATORY: Clear to auscultation. Breath sounds equal bilaterally. No wheezes , rales, or rhonchi. GASTROINTESTINAL: Abdomen soft, non-tender, nondistended. Normal active bowel sounds MUSCULOSKELETAL: Extremities without clubbing, cyanosis, or edema. NEURO: Alert & Oriented x4 to person, place, time, situation. Moves all ext x4 A/P Problem List: (1) Saddle pulmonary embolus Status: Acute Plan: - comgmt with Hematology - Hypercoag w/u ordered - Eliquis started (11/27/16) - continue supplemental oxygen - case d/w Dr. Paredes, Hematology, (11/27/16) - anticipate d/c to home 11/29/16 (2) RV dilation and hypokinesis Status: Acute (3) Elevated troponin Status: Acute Plan: - d/t b/l PE (4) Type 2 diabetes mellitus Status: Chronic Plan: - stable - levemir - SSI (5) Hyperlipidemia Status: Chronic Plan: - tricor, pravachol (6) Hypothyroidism Status: Chronic Plan: - synthroid Problem Qualifiers (1) Saddle pulmonary embolus: (2) Type 2 diabetes mellitus: (3) Hypothyroidism: Qualified Code: E03.9 - Hypothyroidism, unspecified type Fadi Garcia DO Nov 28, 2016 15:11
--- NOTE | 2016-11-28 16:09 | PD.ONC.PN ---
Subjective Subjective Remarks Afebrile overnight. Pt states she feels good today, back to her baseline. She has no chest pain or SOB at rest. She is asking when she will be discharged. Objective Data Date Time Temp Pulse Resp B/P Pulse Ox O2 Delivery O2 Flow Rate FiO2 11/28/16 15:25 94 21 11/28/16 12:00 97.7 62 18 123/68 96 11/28/16 09:40 96.8 73 18 156/98 96 11/28/16 08:31 96 11/28/16 08:00 97.4 58 18 120/67 94 11/28/16 08:00 59 11/28/16 06:00 63 11/28/16 04:00 98.5 51 14 102/56 93 11/28/16 04:00 51 11/28/16 02:00 55 11/28/16 00:00 98.6 58 15 98/54 97 11/28/16 00:00 58 11/27/16 22:00 68 11/27/16 20:20 94 21 11/27/16 20:00 69 11/27/16 20:00 98.9 69 21 136/64 95 11/27/16 18:00 69 11/27/16 16:00 98.2 88 22 85/57 99 11/27/16 16:00 65 11/28/16 11/28/16 11/28/16 07:00 15:00 23:00 Intake Total 669 ml 221 ml Output Total 1000 ml Balance -331 ml 221 ml Result Diagram: 11/28/16 0510 11/26/16 0551 Laboratory Results Laboratory Tests Test 11/28/16 05:10 White Blood Count 5.9 TH/MM3 Red Blood Count 3.64 MIL/MM3 Hemoglobin 10.9 GM/DL Hematocrit 32.5 % Mean Corpuscular Volume 89.4 FL Mean Corpuscular Hemoglobin 29.8 PG Mean Corpuscular Hemoglobin 33.4 % Concent Red Cell Distribution Width 13.6 % Platelet Count 140 TH/MM3 Mean Platelet Volume 8.7 FL Culture Results Microbiology Date/Time Procedure Status Source Growth 11/25/16 21:00 Urine Culture - Final Complete Urine Catheterized Urine NO GROWTH IN 48 HOURS. Imaging Studies Last Impressions Lower Extremity Ultrasound 11/26/16 0000 Signed Impressions: Service Date/Time: Saturday, November 26, 2016 14:31 - CONCLUSION: Positive for DVT in both lower extremities. Yossi Zhang MD CT Angiography 11/25/16 1155 Signed Impressions: Service Date/Time: Friday, November 25, 2016 12:51 - CONCLUSION: 1. Extensive bilateral pulmonary emboli with a prominent saddle embolus. 2. No acute pulmonary infiltrates. Navid Mann MD Administered Medications Medications (Trade) Dose Ordered Sig/Christian Route PRN Reason Start Time Stop Time Status Last Admin Dose Admin IV Flush (NS Flush) 2 ml BID IVF 11/25/16 21:00 11/28/16 07:25 Pantoprazole Sodium (Protonix Inj) 40 mg DAILY IV 11/26/16 09:00 11/28/16 07:25 Chlorhexidine Gluconate (Chlorhexidine 2% Cloth) 3 pack Taper DAILY@04 TOP 11/26/16 04:00 11/22/17 03:59 11/28/16 05:31 Levothyroxine Sodium (Synthroid) 112 mcg DAILY@06 PO 11/26/16 06:00 11/28/16 05:30 Insulin Detemir (Levemir Inj) 15 units Q12H SQ 11/25/16 18:00 11/28/16 05:30 Cholecalciferol (Vitamin D3) 5,000 units DAILY PO 11/26/16 09:00 11/28/16 07:25 Pravastatin Sodium (Pravachol) 80 mg HS PO 11/25/16 21:00 11/27/16 20:34 Fenofibrate (Tricor) 145 mg DAILY PO 11/26/16 09:00 11/28/16 07:25 Apixaban (Eliquis) 10 mg BID PO 11/27/16 17:00 11/28/16 07:25 Objective Remarks GENERAL: Overweight, older female sitting in chair at bedside in no distress. SKIN: Warm and dry. HEAD: Normocephalic. EYES: No injection or drainage. NECK: Supple, trachea midline. CARDIOVASCULAR: Regular rate and rhythm without murmurs. RESPIRATORY: Breath sounds equal bilaterally. No accessory muscle use. GASTROINTESTINAL: Abdomen protuberant. Non-tender, nondistended. EXTREMITIES: No edema. NEUROLOGICAL: No obvious focal deficit. Awake, alert, and oriented x3. Assessment/Plan Problem List: (1) Pulmonary embolism Status: Acute Plan: -- On Eliquis 10mg po BID -- She will likely require lifelong anticoagulation given that this is her second unprovoked DVT/PE. -- Hypercoagulable workup pending. Hx: Pt has had one prior unprovoked pulmonary embolism in 2013. She was on Coumadin for a year and a half but then stopped. She was brought into the ER with c/o sudden onset SOB. Assessment 71 y/o female who presented to the ER with c/o sudden onset SOB. Plan 1. Await hypercoagulable workup. 2. Continue Eliquis 10mg po BID. 3. Followup with Dr. Paredes once discharged. Face sheet faxed to [employer]. 4. Supportive care. Problem Qualifiers (1) Pulmonary embolism: Qualified Code: I26.02 - Acute saddle pulmonary embolism with acute cor pulmonale Carrie Kenny Nov 28, 2016 16:09
[2016-11-28 19:02] LABS: BACTERIA, URINE RARE /hpf; BLOOD, URINE SMALL (NEG); COMMENT (UR) CULTURE INDICATED; CULTURE IF INDICATED CULTURE INDICATED; GLUCOSE,URINE 1000 mg/dL (NEG); KETONE, URINE NEG (NEG); NITRITE,URINE NEG (NEG); PH, URINE 6.5 (5.0-8.5); URINE COLOR LIGHT-YELLOW (YELLW/STRAW)
[2016-11-28] MEDS: PRAVASTATIN SOD 80 MG TAB PO SCH (22:02)
[2016-11-29] VITALS: BP 135/67; PULSE 65; RESP 16; TEMP 96.8; O2SAT 96
[2016-11-29] MEDS: RESP: ALBUTEROL 2.5 MG/IPRATROPIUM 0.5 MG NEB (SCH) NEB ×2 (02:56→09:06)
[2016-11-29 04:00] VITALS: BP 137/66; PULSE 63; RESP 16; TEMP 97.4; O2SAT 96
[2016-11-29] MEDS: CHLORHEXIDINE GLUCONATE 2 % 1 PACK (2 CLOTHS) TOP SCH (04:00)
[2016-11-29] MEDS: MAGNESIUM HYDROXIDE SUSP 30 ML CUP PO PRN ×2 (05:29→13:22)
[2016-11-29] MEDS: LEVOTHYROXINE SODIUM 112 MCG TAB PO SCH (05:29)
[2016-11-29] MEDS: INSULIN DETEMIR 100 UNITS/ML VIAL SQ SCH (05:30)
[2016-11-29] MEDS: INSULIN ASPART SUPPLEMENTAL SCALE SQ SCH ×2 (05:36→11:54)
[2016-11-29] MEDS: CHLORHEXIDINE 0.12% (ORAL KIT) 15 ML CUP MT SCH (08:00)
[2016-11-29 08:46] VITALS: BP 131/69; PULSE 57; RESP 16; TEMP 96.5; O2SAT 96
--- NOTE | 2016-11-29 09:00 | HHI.DS ---
Discharge Summary Admission Date Nov 25, 2016 at 13:41 Admitting Diagnosis saddle PE (1) Saddle pulmonary embolus Diagnosis: Principal (2) RV dilation and hypokinesis Diagnosis: Principal (3) Elevated troponin Diagnosis: Principal (4) Type 2 diabetes mellitus Diagnosis: Secondary (5) Hyperlipidemia Diagnosis: Secondary (6) Hypothyroidism Diagnosis: Secondary Consultants Dr. Marty Paredes, Hematology Brief History Patient is a 71-year-old female with past medical history significant for pulmonary embolism approximately 3 years ago, taken off Coumadin approximately 2 months ago, history of COPD, obesity, type 2 diabetes, hypertension, dyslipidemia who presented to the emergency department complaining of shortness of breath and dyspnea on exertion. She developed a small sore throat about 5 days ago.Her dyspnea on exertion was identical to when she had a PE previously. Twelve-lead EKG showed sinus rhythm with left axis deviation, anterolateral and inferior T wave changes. CBC, BMP, troponin, coags obtained and troponin was 0.59. BUN 28, creatinine 1.50. CT pulmonary angiogram showed extensive bilateral pulmonary emboli with prominent saddle embolus. Given the extensiveness of her clot burden, associated cardiac strain decision was made to administer thrombolytics. Patient was given Activase [address] Philip followed by IV heparin. Stat echo was ordered to evaluate for cardiac dysfunction, RV strain. While getting TPA infusion patient had a drop in blood pressure to systolic of 60s, received 1 L normal saline bolus with improvement of symptoms. I evaluated the patient in the [facility], after arrival to the ICU. Patient is hypoxemic on 5 L oxygen, hemodynamically stable at this time. I personally reviewed the echo images and also discussed with Dr. Parada. RV is dilated and hypokinetic, the risks of possible clot in the RV. Patient will be continued on IV heparin CBC/BMP: 11/28/16 0510 11/26/16 0551 Significant Findings Laboratory Tests Test 11/26/16 11/26/16 11/27/16 11/28/16 11:16 12:43 05:22 05:10 Anti-Thrombin III Activity 61 (80-120) Lupus Anticoagulant APTT 102.0 seconds (< OR = 40) Activated Partial 60.2 SEC 52.8 SEC Thromboplast Time (24.3-30.1) (24.3-30.1) Red Blood Count 3.64 MIL/MM3 (4.00-5.30) Hemoglobin 10.9 GM/DL (11.6-15.3) Hematocrit 32.5 % (35.0-46.0) Platelet Count 140 TH/MM3 (150-450) Test 11/28/16 15:45 Urine Turbidity CLOUDY (CLEAR) Urine Glucose (UA) 1000 mg/dL (NEG) Urine Occult Blood SMALL (NEG) Urine Leukocyte Esterase LARGE (NEG) Urine RBC 120 /hpf (0-3) Urine WBC 61 /hpf (0-5) Urine Bacteria RARE /hpf (NONE) Urine Yeast (Budding) MANY (NONE) PE at Discharge GENERAL: This is a well-nourished, well-developed patient, in no apparent distress. CARDIOVASCULAR: Regular rate and rhythm without murmurs, gallops, or rubs. RESPIRATORY: Clear to auscultation. Breath sounds equal bilaterally. No wheezes , rales, or rhonchi. GASTROINTESTINAL: Abdomen soft, non-tender, nondistended. Normal active bowel sounds MUSCULOSKELETAL: Extremities without clubbing, cyanosis, or edema. NEURO: Alert & Oriented x4 to person, place, time, situation. Moves all ext x4 Hospital Course (1) Saddle pulmonary embolus Status: Acute Plan: - comgmt with Hematology - CTA chest (11/25/16) --> b/l saddle PE - b/l LE US (11/26/16) --> b/l DVT - Hypercoag w/u ordered, pending - Eliquis started (11/27/16) - tolerating RA - case d/w Dr. Paredes, Hematology, (11/27/16) - anticipate d/c to home 11/29/16 - Pt to f/u with Dr. Paredes in 2 weeks (2) RV dilation and hypokinesis Status: Acute - Echocardiogram (11/25/16) --> RV enlargement, RV hypokinesis, EF 55% - pt to f/u with [facility] Cardiology, Dr. Truong in 3 weeks - Pt will need f/u outpt Echocardiogram (3) Elevated troponin Status: Acute Plan: - d/t b/l PE (4) Type 2 diabetes mellitus Status: Chronic Plan: - stable - levemir - SSI (5) Hyperlipidemia Status: Chronic Plan: - tricor, pravachol (6) Hypothyroidism Status: Chronic Plan: - synthroid Pt Condition on Discharge: Stable Discharge Disposition: Discharge Home Discharge Instructions DIET: Follow Instructions for: Diabetic Diet Activities you can perform: Regular-No Restrictions Follow up Referrals: Cardiology - [address] Diogo Truong Oncology with Dr. Marty Paredes PCP Follow-up - [address] Aixa Richard New Medications: Apixaban (Eliquis) 5 Mg Tab 10 MG PO BID pulm emboli #60 Ref 0 TAB Continued Medications: Albiglutide 4-Pack Inj (Tanzeum 4-Pack Inj) 50 Mg Pfpen 50 MG SQ Q7D #4 PEN Cholecalciferol (D 5000) 5,000 Unit Tab 1 TAB PO DAILY Choline Fenofibrate DR (Trilipix) 135 Mg Capdr 135 MG PO DAILY #30 Ref 0 CAP Glimepiride (Glimepiride) 4 Mg Tab 4 MG PO BIDAC Blood Sugar Management #60 Ref 0 TAB Levothyroxine (Levothyroxine) 112 Mcg Tab 112 MCG PO DAILY #30 Ref 0 TAB Linagliptin (Tradjenta) 5 Mg Tab 5 MG PO DAILY Blood Sugar Management #30 Ref 0 TAB Metformin (Metformin) 1,000 Mg Tab 1000 MG PO BIDPC With meals Blood Sugar Management #60 Ref 0 TAB Simvastatin (Zocor) 40 Mg Tab 40 MG PO HS Cholesterol Management #30 Ref 0 TAB Discontinued Medications: Lisinopril (Lisinopril) 20 Mg Tab 20 MG PO BID #30 Ref 0 TAB Fadi Garcia DO Nov 29, 2016 09:00
[2016-11-29] MEDS ORDERED: APIX5TAB PO (09:17)
--- NOTE | 2016-11-29 09:21 | HHI.DCPOC ---
Discharge Care Plan Diagnosis: (1) DVT (deep venous thrombosis) (2) RV dilation and hypokinesis (3) Hypertension (4) Type 2 diabetes mellitus (5) History of pulmonary embolism (6) Saddle pulmonary embolus Goals to Promote Your Health * To prevent worsening of your condition and complications * To maintain your health at the optimal level Directions to Meet Your Goals Take your medications as prescribed Follow your dietary instruction Follow activity as directed Keep your appointments as scheduled Take your immunizations and boosters as scheduled If your symptoms worsen call your PCP, if no PCP go to Urgent Care Center or Emergency Room Smoking is Dangerous to Your Health. Avoid second hand smoke Call the 24-hour hour crisis hotline for domestic abuse at Fadi Garcia DO Nov 29, 2016 09:21
[2016-11-29] MEDS: APIXABAN 5 MG TABLET PO SCH (10:08)
[2016-11-29] MEDS: FENOFIBRATE 145 MG TAB PO SCH (10:08)
[2016-11-29] MEDS: CHOLECALCIFEROL (VIT D3) 5000 UNIT CAP PO SCH (10:08)
[2016-11-29] MEDS: PANTOPRAZOLE SODIUM 40 MG VIAL IV SCH (10:08)
[2016-11-29] MEDS: SODIUM CHLORIDE 0.9% FLUSH 5 ML FLUSH IVF SCH (10:09)
[2016-11-29 12:00] VITALS: BP 149/73; PULSE 66; RESP 16; TEMP 97.1; O2SAT 96
[2016-11-30 03:55] LABS: BETA2 GLYCOPROTEIN I AB IGA LESS THAN 9.0 SAU (< OR = 20)
== END 2016-11-29 13:33 | disposition home or self-care (01) | DRG 176 ==
LOC: PHED 11:22 → PHEDA 13:41 → HIMN 15:55 → HOCB 11-28 09:40
PROVIDERS: ADMIT Hospitalist; ATTEND Hospitalist
DX: I26.92 Saddle embolus of pulmonary artery without acute cor pulmonale (principal); I26.99 Other pulmonary embolism without acute cor pulmonale; I95.9 Hypotension, unspecified; E11.22 Type 2 diabetes mellitus with diabetic chronic kidney disease; E11.65 Type 2 diabetes mellitus with hyperglycemia; D68.59 Other primary thrombophilia; I82.493 Acute embolism and thrombosis of other specified deep vein of lower extremity, bilateral; Z68.41 Body mass index [BMI] 40.0-44.9, adult; J44.9 Chronic obstructive pulmonary disease, unspecified; Z79.84 Long term (current) use of oral hypoglycemic drugs; R09.02 Hypoxemia; Z86.711 Personal history of pulmonary embolism; E78.5 Hyperlipidemia, unspecified; E03.9 Hypothyroidism, unspecified; I12.9 Hypertensive chronic kidney disease with stage 1 through stage 4 chronic kidney disease, or unspecified chronic kidney disease; N18.9 Chronic kidney disease, unspecified; E66.9 Obesity, unspecified; R74.8 Abnormal levels of other serum enzymes; I51.9 Heart disease, unspecified
CPT/HCPCS: 71275; 80048; 80053; 81001; 81240; 81241; 82948; 84484; 85025; 85027; 85300; 85598; 85610; 85613; 85730; 86147; 87086; 87106; 87641; 93005; 93306; 93970; 94640; 94664; 99292; C9113; J1644; J1815; J2405; J2997; J7030; J7040; Q9967

== ENCOUNTER 2017-01-05 16:31 | Observation (INO) | payer MEDICARE ==
[2017-01-05] VITALS (8 sets, daily range): BP systolic 107–164; BP diastolic 51–86; PULSE 58–80; RESP 18–20; TEMP 98; O2SAT 95–99
[~2017-01-05] VITALS: Ht 162.6 cm; Wt 101.2 kg
[~2017-01-05 16:31] MED LIST changes: +ALBI1INJ2 SQ; +APIX5TAB PO; -B-1210005 PO; -CHOL1CAP2; +CHOL1TAB5 PO; -COUM2.5T PO; -COUM2TAB PO; -D31000CA PO; -ENAL20TA PO; -ENOX60P SQ; +LEVO-168 PO; -LEVO125T3 PO; -SIMV40TA PO; +TRIL135C PO; +ZOCO40TA PO
[2017-01-05] MEDS ORDERED: LEVEMIR SQ (16:55)
[2017-01-05] MEDS ORDERED: CALCCHW9 CHEW (16:55)
[2017-01-05] MEDS ORDERED: CHOL5000 PO (16:55)
[2017-01-05] MEDS ORDERED: VITA10002 PO (16:55)
[2017-01-05] MEDS ORDERED: LISI-515 PO (16:55)
[2017-01-05] MEDS ORDERED: SODIUM CHLORIDE 0.9% FLUSH 5 ML FLUSH IVF PRN ×2 (17:00→18:30)
[2017-01-05] MEDS ORDERED: SODIUM CHLORID 0.9% 500 ML INJ 500 ML IV ONE (17:00)
[2017-01-05] MEDS ORDERED: ASPIRIN 81 MG CHEW TAB PO ONE (17:00)
[2017-01-05] MEDS: NITROGLYCERIN 0.4 MG SL 25 TABS/BTL SL SCH ×3 (17:05→17:15)
--- NOTE | 2017-01-05 17:11 | PD ---
HPI Chief Complaint: Chest Pain Time Seen by Provider: 16:50 Travel History International Travel<30 days: No Contact w/Intl Traveler<30days: No Traveled to known affect area: No History of Present Illness HPI Patient is a 71-year-old female with history of hypertension, diabetes, hyperlipidemia, history of saddle PE, bilateral DVT currently on Eliquis, presents to emergency room with complaints of left-sided chest pain. Patient reports around 1 to 1:30 PM, she was walking around at a garage sale today and began to have chest pain. Patient reports that she began to have left sided chest pain, reports that pain felt a sharp and stabbing sensation to the left side of her chest. Patient reports the chest pain has been constant since 1:00 this afternoon. Reports no shortness of breath of symptoms, denies diaphoresis , denies nausea or vomiting. Reports that she has not had symptoms similar to this in the past. Patient denies any radiation of pain at this time. Reports that she did see Dr. Truong in the office last week and had an echo of his heart , reports that she was told that she had minor valve disease. Reports that she was recently diagnosed with saddle PE - she was given lytics on 11/25/16. Reports that she has been compliant with her eliquis. [facility] Past Medical History Cancer: No Cardiovascular Problems: No High Cholesterol: Yes Diabetes: Yes (type 2 ) Patient Takes Glucophage: Yes Diminished Hearing: No Deep Vein Thrombosis: Yes Endocrine: Yes Genitourinary: No Hepatitis: No Hiatal Hernia: No Hypertension: Yes Immune Disorder: No Musculoskeletal: No Neurologic: No Psychiatric: No Reproductive: No Respiratory: Yes (copd; hx SADDLE PE 10/2016) Thyroid Disease: Yes ?: Not : 4 Para: 4 Past Surgical History AICD: No Joint Replacement: No Pacemaker: No Other Surgery: Yes Social History Alcohol Use: No Tobacco Use: No Substance Use: No Allergies-Medications (Allergen,Severity, Reaction): Coded Allergies: Penicillin (Unverified Allergy, Severe, HIVES, 01/05/17) Sulfa (Unverified Allergy, Severe, ANXIETY, 01/05/17) Reported Meds & Prescriptions Reported Meds & Active Scripts Active Eliquis (Apixaban) 5 Mg Tab 10 Mg PO BID Reported Calcium 1200 (Calcium Carbonate-Vitamin D W/Minerals) 1,200-1,000 Mg-Unit Chew 1 Tab CHEW DAILY Levemir Inj (Insulin Detemir) 1,000 unit/ 10 ML Vial 10 Units SQ HS Do not mix with any other Insulin. Vitamin D3 (Cholecalciferol) 5,000 Unit Cap 5,000 Units PO DAILY Vitamin B-12 (Cyanocobalamin) 1,000 Mcg Tab 1,000 Mcg PO DAILY Lisinopril 20 Mg Tab 20 Mg PO DAILY Tanzeum 4-Pack Inj (Albiglutide) 50 Mg Pfpen 50 Mg SQ Q7D Tradjenta (Linagliptin) 5 Mg Tab 5 Mg PO DAILY Glimepiride 4 Mg Tab 4 Mg PO BIDAC Trilipix (Choline Fenofibrate DR) 135 Mg Capdr 135 Mg PO DAILY Zocor (Simvastatin) 40 Mg Tab 40 Mg PO HS Levothyroxine (Levothyroxine Sodium) 112 Mcg Tab 112 Mcg PO DAILY Metformin (Metformin HCl) 1,000 Mg Tab 1,000 Mg PO BIDPC With meals Review of Systems General / Constitutional: No: Fever Eyes: No: Visual changes HENT: No: Headaches Cardiovascular: Positive: Chest Pain or Discomfort Respiratory: No: Cough, Shortness of Breath, Wheezing Gastrointestinal: No: Abdominal Pain Genitourinary: No: Dysuria Musculoskeletal: No: Pain Skin: No Rash Neurologic: No: Weakness Psychiatric: No: Depression Endocrine: No: Polydipsia Hematologic/Lymphatic: No: Easy Bruising Physical Exam Narrative GENERAL: NAD, Nontoxic SKIN: Warm and dry. HEAD: Atraumatic. Normocephalic. EYES: Pupils equal and round. No scleral icterus. No injection or drainage. ENT: No nasal bleeding or discharge. Mucous membranes pink and moist. NECK: Trachea midline. No JVD. CARDIOVASCULAR: Regular rate and rhythm. No murmur appreciated. RESPIRATORY: No accessory muscle use. Clear to auscultation. Breath sounds equal bilaterally. GASTROINTESTINAL: Abdomen soft, non-tender, nondistended. Hepatic and splenic margins not palpable. MUSCULOSKELETAL: No obvious deformities. No clubbing. No cyanosis. No edema. NEUROLOGICAL: Awake and alert. No obvious cranial nerve deficits. Motor grossly within normal limits. Normal speech. PSYCHIATRIC: Appropriate mood and affect; insight and judgment normal. Data Data Last Documented VS Vital Signs Date Time Temp Pulse Resp B/P Pulse Ox O2 Delivery O2 Flow Rate FiO2 01/05/17 17:49 18 01/05/17 17:39 66 109/55 98 Room Air 01/05/17 16:44 98.0 Orders B-Type Natriuretic Peptide (01/05/17 17:00) Ckmb (Isoenzyme) Profile (01/05/17 17:00) Complete Blood Count With Diff (01/05/17 17:00) Comprehensive Metabolic Panel (01/05/17 17:00) Magnesium (Mg) (01/05/17 17:00) Prothrombin Time / Inr (Pt) (01/05/17 17:00) Act Partial Throm Time (Ptt) (01/05/17 17:00) Troponin I (01/05/17 17:00) Chest, Single Ap (01/05/17:00) Ecg Monitoring (01/05/17 17:00) Iv Access Insert/Monitor (01/05/17 17:00) Oximetry (01/05/17 17:00) Aspirin Chew (Aspirin Chew) (01/05/17 17:00) Sodium Chloride 0.9% Flush (Ns Flush) (01/05/17 17:00) Nitroglycerin Sl (Nitrostat Sl) (01/05/17 17:00) Sodium Chlorid 0.9% 500 Ml Inj (Ns 500 M (01/05/17 17:00) Electrocardiogram (01/05/17 16:40) Morphine Inj (Morphine Inj) (01/05/17 17:45) Ketorolac Inj (Toradol Inj) (01/05/17 18:00) Labs Laboratory Tests Test 01/05/17 17:00 White Blood Count 7.1 TH/MM3 Red Blood Count 4.16 MIL/MM3 Hemoglobin 12.0 GM/DL Hematocrit 36.3 % Mean Corpuscular Volume 87.2 FL Mean Corpuscular Hemoglobin 28.8 PG Mean Corpuscular Hemoglobin 33.0 % Concent Red Cell Distribution Width 12.9 % Platelet Count 247 TH/MM3 Mean Platelet Volume 8.7 FL Neutrophils (%) (Auto) 78.9 % Lymphocytes (%) (Auto) 15.3 % Monocytes (%) (Auto) 4.5 % Eosinophils (%) (Auto) 0.7 % Basophils (%) (Auto) 0.6 % Neutrophils # (Auto) 5.7 TH/MM3 Lymphocytes # (Auto) 1.1 TH/MM3 Monocytes # (Auto) 0.3 TH/MM3 Eosinophils # (Auto) 0.0 TH/MM3 Basophils # (Auto) 0.0 TH/MM3 CBC Comment DIFF FINAL Differential Comment Prothrombin Time 11.8 SEC Prothromb Time International 1.1 RATIO Ratio Activated Partial 25.6 SEC Thromboplast Time Sodium Level 141 MEQ/L Potassium Level 4.2 MEQ/L Chloride Level 105 MEQ/L Carbon Dioxide Level 24.9 MEQ/L Anion Gap 11 MEQ/L Blood Urea Nitrogen 21 MG/DL Creatinine 1.20 MG/DL Estimat Glomerular Filtration 44 ML/MIN Rate Random Glucose 245 MG/DL Calcium Level 8.7 MG/DL Magnesium Level 1.7 MG/DL Total Bilirubin 0.3 MG/DL Aspartate Amino Transf 15 U/L (AST/SGOT) Alanine Aminotransferase 21 U/L (ALT/SGPT) Alkaline Phosphatase 37 U/L Total Creatine Kinase 69 U/L Troponin I LESS THAN 0.02 NG/ML B-Type Natriuretic Peptide 20 PG/ML Total Protein 7.1 GM/DL Albumin 3.3 GM/DL [facility] Medical Decision Making Medical Screen Exam Complete: Yes Emergency Medical Condition: Yes Interpretation(s) EKG at 1640: No sinus rhythm at 77 bpm, QT/QTc 380/409, no acute ST or T-wave changes Vital Signs Date Time Temp Pulse Resp B/P Pulse Ox O2 Delivery O2 Flow Rate FiO2 01/05/17 16:58 70 18 01/05/17 16:44 98.0 80 18 144/64 98 Differential Diagnosis ACS, arrhythmia, PE, electrolyte abnormality Narrative Course Patient is a 71-year-old female with history of hypertension, hyperlipidemia, diabetes, saddle PE, DVT who presents to emergency room with complaints of chest pain. Patient reports that she began to have chest pain around 1 PM today while walking around outside. She reports that pain is located in her left chest, reports that pain is sharp and stabbing in nature. Patient reports that pain has been constant since 1 PM today. Patient does see Dr.Steven Truong in office. Patient here for evaluation of chest pain. EKG obtained upon arrival to emergency room. Patient was placed on a cardiac specialist. Labs as well as x-ray chest ordered. Will give patient supplemental nitroglycerin to see if this helps with her chest pain. patient with no relief of chest pain with 1 sl nitro - reports that "it didn't help me at all," will give morphine pt will be required to be obs for chest pain Physician Communication Physician Communication case reviewed with dr vaughn who accepts pt to service Diagnosis Primary Impression: Chest pain Qualified Code: R07.9 - Chest pain, unspecified type Admitting Information Admitting Physician Requests: Observation Fatmata Lora DO Jan 05, 2017 17:11
[2017-01-05 17:13] LABS: AUTOMATED NEUTROPHIL # 5.7 TH/MM3 (1.8-7.7); BASOPHIL % 0.6 % (0.0-2.0); EOSINOPHIL % 0.7 % (0.0-4.0); HEMATOCRIT 36.3 % (35.0-46.0); LYMPH % 15.3 % (9.0-44.0); LYMPHOCYTE # 1.1 TH/MM3 (1.0-4.8); MEAN CELL VOLUME 87.2 FL (80.0-100.0); MEAN CORPUSCULAR HEMOGLOBIN 28.8 PG (27.0-34.0); MONO % 4.5 % (0.0-8.0); NEUT % 78.9 % (16.0-70.0); PLATELET COUNT 247 TH/MM3 (150-450); RED BLOOD COUNT 4.16 MIL/MM3 (4.00-5.30); RED CELL DISTRIBUTION WIDTH 12.9 % (11.6-17.2); WHITE BLOOD COUNT 7.1 TH/MM3 (4.0-11.0)
[2017-01-05 17:16] LABS: HEMO FLAGS DIFF FINAL
[2017-01-05 17:20] LABS: CHLORIDE 105 MEQ/L (98-107); POTASSIUM 4.2 MEQ/L (3.5-5.1); SODIUM (NA) 141 MEQ/L (136-145)
--- NOTE | 2017-01-05 17:23 | RADHPO ---
EXAM DATE/TIME: 01/05/2017 17:10 [place] COMPARISON: CHEST SINGLE AP, May 11, 2014, 13:54. INDICATIONS : Chest pain today MEDICAL HISTORY : blood clots SURGICAL HISTORY : None. ENCOUNTER: Initial ACUITY: 1 day PAIN SCORE: 8/10 LOCATION: Bilateral chest FINDINGS: A single view of the chest demonstrates the lungs to be symmetrically aerated without evidence of mas s, infiltrate or effusion. The cardiomediastinal contours are unremarkable. Osseous structures are intact. CONCLUSION: No evidence of acute cardiopulmonary disease. Evan Culp MD on January 05, 2017 at 17:20 Board Certified Radiologist. This report was verified electronically.
[2017-01-05 17:24] LABS: ANION GAP 11 MEQ/L (5-15); BICARBONATE 24.9 MEQ/L (21.0-32.0); BLOOD UREA NITROGEN 21 MG/DL (7-18); MAGNESIUM 1.7 MG/DL (1.5-2.5)
[2017-01-05 17:26] LABS: APTT (PATIENT) 25.6 SEC (24.3-30.1); INTERNATIONAL NORMALIZED RATIO 1.1 RATIO; PROTHROMBIN TIME - PATIENT 11.8 SEC (9.8-11.6)
[2017-01-05 17:27] LABS: ALT (GPT) 21 U/L (10-53); AST (GOT) 15 U/L (15-37)
[2017-01-05 17:28] LABS: GLOMERULAR FILTRATION RATE 44 ML/MIN (>89)
[2017-01-05 17:29] LABS: TOTAL BILIRUBIN ADULT 0.3 MG/DL (0.2-1.0)
[2017-01-05 17:30] LABS: ALKALINE PHOSPHATASE 37 U/L (45-117)
[2017-01-05 17:37] LABS: CREATINE KINASE 69 U/L (26-192)
[2017-01-05] MEDS ORDERED: MORPHINE SULFATE 4 MG/ML INJ IV PUSH ONE (17:45)
[2017-01-05] MEDS ORDERED: KETOROLAC TROMETHAMINE 30 MG/ML (IVP) VIAL IV PUSH ONE (18:00)
[2017-01-05] MEDS ORDERED: NITROGLYCERIN 0.4 MG SL 25 TABS/BTL SL PRN (18:30)
[2017-01-05] MEDS ORDERED: DEXTROSE 50% IN WATER 50 ML VIAL(D50) IV PUSH PRN (18:30)
[2017-01-05] MEDS ORDERED: GLUCAGON 1 MG/ML VIAL OTHER PRN (18:30)
[2017-01-05] MEDS ORDERED: ACETAMINOPHEN 500 MG CPLT PO PRN (18:30)
[2017-01-05 20:34] LABS: CREATINE KINASE 57 U/L (26-192)
[2017-01-05] MEDS: SODIUM CHLORIDE 0.9% FLUSH 5 ML FLUSH IVF SCH (21:00)
[2017-01-05] MEDS ORDERED: PRAVASTATIN SOD 80 MG TAB PO SCH (21:00)
[2017-01-05] MEDS ORDERED: APIXABAN 5 MG TABLET PO SCH (21:00)
[2017-01-05] MEDS ORDERED: INSULIN DETEMIR 100 UNITS/ML VIAL SQ SCH (21:00)
[2017-01-05] MEDS: SODIUM CHLOR 0.9% 1000 ML INJ 1,000 ML IV SCH (21:20)
[2017-01-05] MEDS: APIXABAN 5 MG TABLET PO SCH (21:21)
[2017-01-05] MEDS: INSULIN NovoLIN REGULAR SUPPLEMENTAL SCALE SQ SCH (21:22)
[2017-01-06] VITALS (7 sets, daily range): BP systolic 96–143; BP diastolic 48–68; PULSE 50–65; RESP 15–20; O2SAT 94–98
[2017-01-06 00:24] LABS: CREATINE KINASE 48 U/L (26-192)
[2017-01-06] MEDS ORDERED: LEVOTHYROXINE SODIUM 112 MCG TAB PO SCH (06:00)
[2017-01-06] MEDS ORDERED: DAPA1TAB3 PO (06:48)
[2017-01-06] MEDS ORDERED: GLIMEPIRIDE 4 MG TAB PO SCH (07:00)
[2017-01-06] MEDS: INSULIN NovoLIN REGULAR SUPPLEMENTAL SCALE SQ SCH ×2 (07:00→11:00)
[2017-01-06] MEDS: SODIUM CHLOR 0.9% 1000 ML INJ 1,000 ML IV SCH (07:29)
[2017-01-06] MEDS: SODIUM CHLORIDE 0.9% FLUSH 5 ML FLUSH IVF SCH (09:00)
[2017-01-06] MEDS ORDERED: LISINOPRIL 20 MG TAB PO SCH (09:00)
[2017-01-06] MEDS: APIXABAN 5 MG TABLET PO SCH (09:21)
--- NOTE | 2017-01-06 10:13 | HHI.HP ---
[facility] Primary [facility] Physician Aixa Whitaker MD Admission Diagnosis Chest pain Diagnoses: (1) Atypical chest pain Diagnosis: Principal Chief Complaint: chest pain Travel History International Travel<30 Days: No Contact w/Intl Traveler <30 Da: No Traveled to Known Affected Are: No History of Present Illness 71-year-old female with history of hypertension, hyperlipidemia, diabetes, thyroid disease with recent admission in October for bilateral DVT and saddle pulmonary emboli presents with complaint of chest pain and is admitted to chest pain center. Patient states at 11 AM yesterday she started to have a sharp pain above the left breast which was constant until she came into the ED at 4 PM yesterday. She received nitroglycerin and morphine, and Toradol, but she states it is difficult to tell what helped her pain. Patient was recently admitted in October for bilateral DVT and extensive PE including saddle pulmonary emboli and received alteplase at that time. She states she followed up with Dr. Paredes research dairy farm supervisor this past Saturday and an ultrasound of her legs was performed; clotting disorder workup was negative. She states she saw Dr. Truong, ict business analyst, the week before and had an echocardiogram done. The patient denies any diaphoresis, numbness/tingling, radiation of pain to the arm/neck/jaws/back. The patient denies any shortness of breath either now or when the pain was present. She denies pleuritic pain. She denies any chest pain or dyspnea on exertion. She denies any leg swelling currently. She admits to a morning cough but denies feeling ill otherwise; denies any fevers or chills, earache, or sore throat. Denies any rashes. Denies any abdominal pain, nausea, vomiting, or diarrhea. Patient did not have chest pain with her PE. Review of Systems Constitutional: DENIES: Diaphoretic episodes, Fever, Chills, Dizziness Eyes: DENIES: Blurred vision Ears, nose, mouth, throat: DENIES: Throat pain, Ear Pain Respiratory: COMPLAINS OF: Cough, DENIES: Shortness of breath Cardiovascular: COMPLAINS OF: Chest pain, DENIES: Dyspnea on Exertion, Lower Extremity Edema Gastrointestinal: DENIES: Abdominal pain, Diarrhea, Nausea, Vomiting Genitourinary: DENIES: Dysuria Musculoskeletal: DENIES: Back pain, Neck pain Integumentary: DENIES: Rash Neurologic: DENIES: Headache, Paresthesias Past Family Social History Past Medical History : Bilateral DVT and extensive bilateral pulmonary emboli including saddle pulmonary embolus. 2014: Bilateral upper lobe and lower lobe pulmonary emboli, DVT R leg. Type 2 diabetes Hypertension Hyperlipidemia Thyroid disease Para 4 Past Surgical History No surgeries Reported Medications Eliquis (Apixaban) 5 Mg Tab 5 Mg PO BID Farxiga (Dapagliflozin) 10 Mg Tab 10 Mg PO DAILY Calcium 1200 (Calcium Carbonate-Vitamin D W/Minerals) 1,200-1,000 Mg-Unit Chew 1 Tab CHEW DAILY Levemir Inj (Insulin Detemir) 1,000 unit/ 10 ML Vial 20-30 Units SQ HS Do not mix with any other Insulin. Vitamin D3 (Cholecalciferol) 5,000 Unit Cap 5,000 Units PO DAILY Vitamin B-12 (Cyanocobalamin) 1,000 Mcg Tab 1,000 Mcg PO DAILY Lisinopril 20 Mg Tab 20 Mg PO DAILY Tanzeum 4-Pack Inj (Albiglutide) 50 Mg Pfpen 50 Mg SQ Q7D Glimepiride 4 Mg Tab 4 Mg PO BIDAC Trilipix (Choline Fenofibrate DR) 135 Mg Capdr 135 Mg PO DAILY Zocor (Simvastatin) 40 Mg Tab 40 Mg PO HS Levothyroxine (Levothyroxine Sodium) 112 Mcg Tab 112 Mcg PO DAILY Metformin (Metformin HCl) 1,000 Mg Tab 1,000 Mg PO BIDPC With meals Allergies: Coded Allergies: Penicillin (Unverified Allergy, Severe, HIVES, 01/05/17) Sulfa (Unverified Allergy, Severe, ANXIETY, 01/05/17) Family History Mother: of ovarian cancer at age 54. Father: Type II diabetic, black lung from working in the [employer]. Patient denies any family history of DVTs, PEs, MT, or CVA. Social History No history of alcohol use or tobacco use. No history of illicit drug use. Physical Exam Vital Signs Vital Signs Date Time Temp Pulse Resp B/P Pulse Ox O2 Delivery O2 Flow Rate FiO2 01/06/17 09:22 58 20 112/54 97 01/06/17 07:58 65 15 143/68 01/06/17 04:18 50 20 111/52 98 01/06/17 02:00 50 20 109/51 94 01/06/17 01:00 50 20 118/51 95 01/06/17 00:18 54 20 96/48 98 01/05/17 21:48 68 20 164/86 99 01/05/17 20:36 64 20 141/60 95 01/05/17 20:13 95 21 01/05/17 20:06 20 98 01/05/17 19:18 58 20 133/62 97 01/05/17 19:00 20 01/05/17 17:49 18 01/05/17 17:39 66 18 109/55 98 Room Air 01/05/17 17:28 18 01/05/17 17:20 65 18 107/52 97 Room Air 01/05/17 17:14 69 18 123/51 98 Room Air 01/05/17 16:58 70 18 01/05/17 16:44 98.0 80 18 144/64 98 Physical Exam GENERAL: BMI 38.3. This is a very pleasant well-developed patient, in no apparent distress. SKIN: No rashes, ecchymoses or lesions. Warm and dry. HEAD: Atraumatic. Normocephalic. EYES: No scleral icterus. No injection or drainage. NECK: Trachea midline. No JVD. CHEST: No reproducible tenderness over L anterior and lateral chest. CARDIOVASCULAR: Regular rate and rhythm without murmurs, gallops, or rubs. RESPIRATORY: Clear to auscultation. Breath sounds equal bilaterally. No wheezes , rales, or rhonchi. GASTROINTESTINAL: Abdomen soft, non-tender, nondistended. No guarding. MUSCULOSKELETAL: Left ankle appears slightly larger than right, but no obvious edema. No posterior thigh or calf pain bilaterally. 2+ DP pulses bilaterally. NEUROLOGICAL: Awake and alert. Motor grossly within normal limits. Normal speech. PSYCHIATRIC: Normal mood and affect. Insight and judgement normal. Laboratory Laboratory Tests Test 01/05/17 01/05/17 01/05/17 17:00 19:55 23:35 White Blood Count 7.1 Red Blood Count 4.16 Hemoglobin 12.0 Hematocrit 36.3 Mean Corpuscular Volume 87.2 Mean Corpuscular Hemoglobin 28.8 Mean Corpuscular Hemoglobin 33.0 Concent Red Cell Distribution Width 12.9 Platelet Count 247 Mean Platelet Volume 8.7 Neutrophils (%) (Auto) 78.9 Lymphocytes (%) (Auto) 15.3 Monocytes (%) (Auto) 4.5 Eosinophils (%) (Auto) 0.7 Basophils (%) (Auto) 0.6 Neutrophils # (Auto) 5.7 Lymphocytes # (Auto) 1.1 Monocytes # (Auto) 0.3 Eosinophils # (Auto) 0.0 Basophils # (Auto) 0.0 CBC Comment DIFF FINAL Differential Comment Prothrombin Time 11.8 Prothromb Time International 1.1 Ratio Activated Partial 25.6 Thromboplast Time Sodium Level 141 Potassium Level 4.2 Chloride Level 105 Carbon Dioxide Level 24.9 Anion Gap 11 Blood Urea Nitrogen 21 Creatinine 1.20 Estimat Glomerular Filtration 44 Rate Random Glucose 245 Calcium Level 8.7 Magnesium Level 1.7 Total Bilirubin 0.3 Aspartate Amino Transf 15 (AST/SGOT) Alanine Aminotransferase 21 (ALT/SGPT) Alkaline Phosphatase 37 Total Creatine Kinase 69 57 48 Troponin I LESS THAN 0.02 LESS THAN 0.02 LESS THAN 0.02 B-Type Natriuretic Peptide 20 Total Protein 7.1 Albumin 3.3 Result Diagram: 01/05/17169901/05/171699 Imaging Last Impressions Chest X-Ray 01/05/171699 Signed Impressions: Service Date/Time: Thursday, January 05, 2017 17:10 - CONCLUSION: No evidence of acute cardiopulmonary disease. Evan Culp MD Assessment and Plan Assessment and Plan 71-year-old female with: Atypical chest pain: Sharp left chest constant for several hours. Patient is currently pain-free. No shortness of breath reported. EKGs 3 personally interpreted with low QRS voltages, LAD on EKG#1, but no acute ischemic abnormalities. Troponin 3 less than 0.02. BNP normal. CBC unremarkable. Chest x-ray personally reviewed without a acute disease. -Patient received 324 mg of aspirin in the ED. -Nitro prn chest pain -Telemetry -Patient will need to undergo a nuclear stress test. Chronic kidney disease, stage III: BUN/Cr 21/1.2. -Patient was given 500 bolus in the ED and was placed on IV NS, but Cr is about baseline for the patient. -Avoid nephrotoxins Diabetes: BGL 245. -Bedside Accu-checks and SSI -hold Metformin -Continue other home medications Other chronic medical conditions include hypertension, hyponatremia, thyroid disease, DVT/PE: Continue home medications. DVT prophylaxis: on Eliquis Patient would need to undergo a nuclear stress test, but upon my exam I realized that patient had drank half a cup of tea this morning and apparently also ate breakfast. I informed the patient that she would need to go 12 hours without caffeine. I advised her we could do a stress test in the morning but she did not desire to wait and signed out AGAINST MEDICAL ADVICE. The patient states she will follow up outpatient with her ict business analyst and PCP. Ann Butler Jan 06, 2017 10:13
--- NOTE | 2017-01-07 07:20 | EKG ---
Date Performed: 01/05/2017 Time Performed: 16:40:34 PTAGE: 71 years EKG: Sinus rhythm Left axis deviation Cannot exclude posterior wall myocardial infarction of undetermined age Abnormal ECG Compared to PREVIOUS TRACING , the T-wave changes anteriorly have resolved. Patient continues to have changes compatible with posterior wall myocardial infarction of undetermined age. PREVIOUS TRACIN11/25/2016 11.57 DOCTOR: Ludwig Clark Interpretating Date/Time 01/07/2017 07:18:53
--- NOTE | 2017-01-07 07:29 | EKG ---
Date Performed: 01/05/2017 Time Performed: 19:55:00 PTAGE: 71 years EKG: Sinus rhythm . Left axis deviation Probable infero posterior wall infarction of undetrermined age Low QRS voltage in precordial leads Abnormal ECG Since PREVIOUS TRACING , no significant change noted PREVIOUS TRACIN01/05/2017 16.40 DOCTOR: Ludwig Clark Interpretating Date/Time 01/07/2017 07:27:55
--- NOTE | 2017-01-07 07:31 | EKG ---
Date Performed: 01/05/2017 Time Performed: 22:59:10 PTAGE: 71 years EKG: Sinus rhythm . Left axis deviation Probable infero posterior wall infarction of undetermined age Low QRS voltage i n the precordial leads Abnormal ECG Compared to PREVIOUS TRACING , no significant change. PREVIOUS TRACIN01/05/2017 19.55 DOCTOR: Ludwig Clark Interpretating Date/Time 01/07/2017 07:29:37
== END 2017-01-06 11:46 | disposition left against medical advice (07) ==
LOC: PHED 16:31 → PHEDA 18:21 → PHEDH 21:58
PROVIDERS: ADMIT Hospitalist; ATTEND Hospitalist
DX: R07.89 Other chest pain (principal); E11.22 Type 2 diabetes mellitus with diabetic chronic kidney disease; I12.9 Hypertensive chronic kidney disease with stage 1 through stage 4 chronic kidney disease, or unspecified chronic kidney disease; E78.5 Hyperlipidemia, unspecified; N18.3 Chronic kidney disease, stage 3 (moderate); E07.9 Disorder of thyroid, unspecified; E87.1 Hypo-osmolality and hyponatremia; Z79.01 Long term (current) use of anticoagulants; Z86.718 Personal history of other venous thrombosis and embolism; Z86.711 Personal history of pulmonary embolism; Z79.84 Long term (current) use of oral hypoglycemic drugs; Z88.0 Allergy status to penicillin; Z88.2 Allergy status to sulfonamides
CPT/HCPCS: 71010; 80053; 82550; 83735; 83880; 84484; 85025; 85610; 85730; 93005; 96361; 96374; 96375; 99285; G0378; J1885; J2270; J7030; J7040